=== PATIENT | female | born 1965 | race Caucasian/White ===

== ENCOUNTER → 2017-12-30 13:28 | Outpatient (CLI) | payer OTHER, MEDICAID, SELFPAY ==
--- NOTE | 2017-12-30 13:32 | DI.RAD.S_ITS ---
PROCEDURE: XR FOOT LT MIN 3V INDICATIONS: left foot pain around 4th and 5th metatarsals. TECHNIQUE: 3 views of the foot were acquired. COMPARISON: None. FINDINGS: Bones: No fractures or dislocations. No suspicious bony lesions. Small plantar calcaneal spur. Chronic appearing spur or ossicle projecting adjacent to the medial aspect of the third MTP joint. Soft tissues: No tibiotalar joint effusion. Achilles tendon appears normal. IMPRESSION: No fracture Marginal lucencies involving the fifth metatarsal head. If there is clinical suspicion for inflammatory arthritis, continued serial radiographic surveillance could be performed, versus MRI with and without contrast. Small plantar calcaneal spur Dictated by: Alex Menon M.D. on 12/30/2017 at 14:17 Approved by: Alex Menon M.D. on 12/30/2017 at 14:20
== END ==
PROVIDERS: Visit Provider Physician Assistant
DX: M79.672 Pain in left foot (principal); M77.32 Calcaneal spur, left foot
CPT/HCPCS: 73630

== ENCOUNTER → 2018-03-16 10:16 | Outpatient (CLI) | payer OTHER, SELFPAY | PROVIDERS: PCP Family Medicine; Visit Provider Family Medicine | DX: Z12.31 Encounter for screening mammogram for malignant neoplasm of breast (principal) ==

== ENCOUNTER → 2018-03-21 10:00 | Outpatient (CLI) | payer OTHER, SELFPAY ==
--- NOTE | 2018-03-21 | DI.US.S_ITS ---
ULTRASOUND OF LEFT BREAST: 03/21/2018 CLINICAL: Palpable left breast lump x 6 months. Comparison is made to exams dated: 03/21/2018 mammogram - [facility], 10/06/2016 mammogram, 10/10/2015 mammogram, and 11/03/2011 mammogram - [facility]. Ultrasound of the left breast was performed on the area of interest. Hightower scale images of the real-time examination were reviewed. IMPRESSION: NEGATIVE There is no sonographic evidence of malignancy. There is no mammographic or sonographic abnormality seen in the left breast to correspond with the palpable abnormality, however, clinical followup is recommended. A 1 year screening mammogram is recommended. This exam was interpreted at Station ID: [id number]. Electronically Signed By: Madonna Nelson M.D. lk/:03/21/2018 13:49:13 letter sent: Normal Exam Ultrasound BI-RADS: 1 Negative
--- NOTE | 2018-03-21 10:03 | DI.MG.S_ITS ---
BILATERAL DIGITAL DIAGNOSTIC MAMMOGRAM 3D/2D POST LUMPECTOMY: 03/21/2018 CLINICAL: Left breast lump. Comparison is made to exams dated: 10/06/2016 mammogram, 10/10/2015 mammogram, and 11/03/2011 mammogram - [facility]. There are scattered fibroglandular elements in both breasts. There is a benign post surgical scar in the left breast. No significant masses, calcifications, or other findings are seen in either breast. IMPRESSION: INCOMPLETE: NEEDS ADDITIONAL IMAGING EVALUATION There is no mammographic abnormality seen in the left breast to correspond with the palpable abnormality, however, ultrasound is recommended. This exam was interpreted at Station ID: [id number]. NOTE: For mammograms, a report in lay terms will be sent to the patient. Approximately 15% of breast malignancies will not be visualized mammographically. In the management of a palpable breast mass, a negative mammogram must not discourage biopsy of a clinically suspicious lesion. Electronically Signed By: Madonna ulrcih/tiarra:03/21/2018 10:59:10 letter sent: Additional Imaging Needed ACR BI-RADS Category 0: Incomplete 3340F
== END ==
PROVIDERS: PCP Family Medicine; Visit Provider Family Medicine
DX: R92.8 Other abnormal and inconclusive findings on diagnostic imaging of breast (principal); N63.20 Unspecified lump in the left breast, unspecified quadrant
CPT/HCPCS: 76642; 77066; G0279

== ENCOUNTER → 2018-03-28 09:26 | Outpatient (CLI) | payer OTHER, SELFPAY ==
[2018-03-28 10:10] LABS: Hematocrit 38.8 % (36-46); Hemoglobin 12.8 g/dL (12.0-16.0); Mean Corpuscular HGB Conc 32.9 % (30-36); Mean Corpuscular Hemoglobin 27.1 PG (26-34); Mean Corpuscular Volume 82.2 fL (80-100); Platelet Count 234 X10^3/uL (150-400); Red Blood Cell Count 4.72 X10^6/uL (4.0-5.2); Red Cell Distribution Width 13.2 % (11.6-14.8); White Blood Cell Count 5.7 X10^3/uL (4.5-11.0)
[2018-03-28 10:12] LABS: BUN Creatinine Ratio 18.6 (6-22); Blood Urea Nitrogen 13 mg/dL (7-17); Calcium 9.4 mg/dL (8.4-10.2); Carbon Dioxide 26 mmol/L (22-32); Chloride 105 mmol/L (98-107); Cholesterol 211 mg/dL (140-199); Estimated Glomerular Filt Rate > 60.0 mL/min (>60); Glucose 99 mg/dL (70-100); HDL Cholesterol 45 mg/dL (40-60); HEMOLYSIS < 15 (0-50); LDL Cholesterol Calculated 135 mg/dL (<100); Potassium 4.6 mmol/L (3.4-5.1); Sodium 141 mmol/L (137-145); Triglycerides 156 mg/dL (35-150)
[2018-03-28 10:42] LABS: Microalbumi Creatinin Ratio Ur 4.7 ug/mg CR (<30); Microalbumin Urine Random 0.8 mg/dL (0-1.6)
[2018-03-28 11:42] LABS: Neutrophils Absolute Manual 2964 /uL (3000-5900); Total Cells Counted 100
[2018-03-28 11:43] LABS: RBC Morphology Normal Morphology
== END ==
PROVIDERS: Family Provider Family Medicine; PCP Family Medicine; Visit Provider Family Medicine
DX: E03.9 Hypothyroidism, unspecified (principal); I10 Essential (primary) hypertension
CPT/HCPCS: 36415; 80048; 80061; 82043; 82570; 85025

== ENCOUNTER → 2018-06-13 10:50 | Outpatient (CLI) | payer OTHER, SELFPAY ==
[2018-06-13 16:19] LABS: Rubella Antibody IgG > 350.0 IU/mL (>15)
[2018-06-16 16:12] LABS: Mumps Virus IgG Antibody < 9.00 AU/mL (< 9.00)
== END ==
PROVIDERS: Family Provider Family Medicine; PCP Family Medicine; Visit Provider Family Medicine
DX: Z01.84 Encounter for antibody response examination (principal)
CPT/HCPCS: 36415; 86735; 86762; 86765

== ENCOUNTER → 2018-07-29 15:12 | Outpatient (CLI) | payer OTHER, SELFPAY | PROVIDERS: Family Provider Family Medicine; PCP Family Medicine; Visit Provider Family Medicine | DX: Z13.820 Encounter for screening for osteoporosis (principal); M85.851 Other specified disorders of bone density and structure, right thigh; Z78.0 Asymptomatic menopausal state; E07.9 Disorder of thyroid, unspecified; Z85.3 Personal history of malignant neoplasm of breast; Z82.62 Family history of osteoporosis | CPT/HCPCS: 77080 ==

== ENCOUNTER → 2019-04-08 10:07 | Outpatient (CLI) | payer OTHER, SELFPAY ==
[2019-04-08 11:51] LABS: Thyroid Stimulating Hormone 1.24 uIU/mL (0.47-4.68)
== END ==
PROVIDERS: Family Provider Family Medicine; PCP Family Medicine; Visit Provider Family Medicine
DX: E03.9 Hypothyroidism, unspecified (principal)
CPT/HCPCS: 36415; 84443

== ENCOUNTER → 2019-05-24 07:55 | Outpatient (CLI) | payer OTHER, SELFPAY ==
--- NOTE | 2019-05-24 | DI.MG.S_ITS ---
BILATERAL DIGITAL SCREENING MAMMOGRAM 3D/2D WITH CAD POST LUMPECTOMY: 05/24/2019 CLINICAL: Routine screening. Personal history of left breast cancer. Comparison is made to exams dated: 03/21/2018 mammogram - [facility], 10/06/2016 mammogram, and 10/10/2015 mammogram - [facility]. There are scattered fibroglandular elements in both breasts. Current study was also evaluated with a Computer Aided Detection (CAD) system. There are benign post operative findings in the left breast. No significant masses, calcifications, or other findings are seen in either breast. There has been no significant interval change. IMPRESSION: There is no mammographic evidence of malignancy. A 1 year screening mammogram is recommended. This exam was interpreted at Station ID: [id number]. NOTE: For mammograms, a report in lay terms will be sent to the patient. Approximately 15% of breast malignancies will not be visualized mammographically. In the management of a palpable breast mass, a negative mammogram must not discourage biopsy of a clinically suspicious lesion. Electronically Signed By: Lorenzo mclean/tiarra:05/24/2019 08:13:58 letter sent: Normal Exam ACR BI-RADS Category 2: Benign Finding(s) 3342F
== END ==
PROVIDERS: Family Provider Family Medicine; PCP Family Medicine; Referring Provider Family Medicine; Visit Provider Family Medicine
DX: Z12.31 Encounter for screening mammogram for malignant neoplasm of breast (principal); Z85.3 Personal history of malignant neoplasm of breast
CPT/HCPCS: 77063; 77067

== ENCOUNTER → 2019-12-05 07:03 | Outpatient (CLI) | payer OTHER, SELFPAY ==
[2019-12-05 08:37] LABS: Add Manual Diff / Slide Review NO; Basophils Absolute Auto 0 /uL (0-100); Basophils Percent Auto 0.8 % (0-2); Eosinophils Absolute Auto 400 /uL (0-450); Eosinophils Percent Auto 7.5 % (2-4); Hematocrit 39.1 % (36-46); Hemoglobin 12.7 g/dL (12.0-16.0); Lymphocytes Absolute Auto 1500 /uL (1100-4500); Mean Corpuscular HGB Conc 32.4 % (30-36); Mean Corpuscular Hemoglobin 26.7 PG (26-34); Mean Corpuscular Volume 82.3 fL (80-100); Monocytes Absolute Auto 600 /uL (0-900); Monocytes Percent Auto 9.6 % (3-14); Neutrophils Absolute Auto 3300 /uL (1500-7000); Neutrophils Percent Auto 56.1 % (50-75); Platelet Count 242 X10^3/uL (150-400); Red Blood Cell Count 4.75 X10^6/uL (4.0-5.2); Red Cell Distribution Width 13.3 % (11.6-14.8); White Blood Cell Count 5.9 X10^3/uL (4.5-11.0)
[2019-12-05 09:04] LABS: Alanine Aminotransferase 18 IU/L (<35); Albumin 3.9 g/dL (3.5-5.0); Albumin Globulin Ratio 1.4 (1.0-2.8); Alkaline Phosphatase 52 U/L (38-126); Aspartate Aminotransferase 27 IU/L (14-36); BUN Creatinine Ratio 19.1 (6-22); Bilirubin Total 0.2 mg/dL (0.2-1.3); Blood Urea Nitrogen 13 mg/dL (7-17); Calcium 8.9 mg/dL (8.4-10.2); Carbon Dioxide 30 mmol/L (22-32); Chloride 105 mmol/L (98-107); Cholesterol 183 mg/dL (140-199); Estimated Glomerular Filt Rate > 60.0 mL/min (>60); Globulin 2.7 g/dL (1.7-4.1); Glucose 100 mg/dL (70-100); HDL Cholesterol 43 mg/dL (40-60); HEMOLYSIS < 15 (0-50); LDL Cholesterol Calculated 105 mg/dL (<100); Microalbumin Urine Random 0.7 mg/dL (0-1.6); Potassium 4.4 mmol/L (3.4-5.1); Sodium 141 mmol/L (137-145); Total Protein 6.6 g/dL (6.3-8.2); Triglycerides 175 mg/dL (35-150)
[2019-12-05 09:05] LABS: Creatinine Urine Random 168.3 mg/dL; Microalbumi Creatinin Ratio Ur 4.1 ug/mg CR (<30)
[2019-12-05 09:13] LABS: Vitamin D 25 Hydroxy (D3) 52.7 ng/mL (30.0-100.0)
[2019-12-05 09:31] LABS: Thyroid Stimulating Hormone 1.69 uIU/mL (0.47-4.68)
== END ==
PROVIDERS: Family Provider Family Medicine; PCP Family Medicine; Referring Provider Family Medicine; Visit Provider Family Medicine
DX: E03.9 Hypothyroidism, unspecified (principal); I10 Essential (primary) hypertension; M85.80 Other specified disorders of bone density and structure, unspecified site; Z13.220 Encounter for screening for lipoid disorders
CPT/HCPCS: 36415; 80053; 80061; 82043; 82306; 82570; 84443; 85025

== ENCOUNTER → 2020-06-03 11:14 | Outpatient (CLI) | payer OTHER, SELFPAY ==
--- NOTE | 2020-06-03 | DI.MG.S_ITS ---
BILATERAL DIGITAL SCREENING MAMMOGRAM 3D/2D WITH CAD: 06/03/2020 CLINICAL: Routine screening. Personal history of left breast cancer. Comparison is made to exams dated: 05/24/2019 mammogram, 03/21/2018 mammogram - [facility], and 10/06/2016 mammogram - [facility]. There are scattered fibroglandular elements in both breasts. Current study was also evaluated with a Computer Aided Detection (CAD) system. There are benign post operative findings in the left breast. No significant masses, calcifications, or other findings are seen in either breast. There has been no significant interval change. IMPRESSION: BENIGN There is no mammographic evidence of malignancy. A 1 year screening mammogram is recommended. This exam was interpreted at Station ID: [id number]. NOTE: For mammograms, a report in lay terms will be sent to the patient. Approximately 15% of breast malignancies will not be visualized mammographically. In the management of a palpable breast mass, a negative mammogram must not discourage biopsy of a clinically suspicious lesion. Electronically Signed By: Lillian harding/tiarra:06/03/2020 12:19:08 letter sent: Normal Exam ACR BI-RADS Category 2: Benign Finding(s) 3342F
[2020-06-04 15:08] LABS: Fecal Immunochemical Test Negative (Negative)
== END ==
PROVIDERS: Family Provider Family Medicine; PCP Family Medicine; Referring Provider Family Medicine; Visit Provider Family Medicine
DX: Z12.31 Encounter for screening mammogram for malignant neoplasm of breast (principal); Z85.3 Personal history of malignant neoplasm of breast; Z12.11 Encounter for screening for malignant neoplasm of colon
CPT/HCPCS: 77063; 77067; 82274

== ENCOUNTER → 2020-08-12 09:06 | Outpatient (CLI) | payer OTHER, SELFPAY ==
--- NOTE | 2020-08-12 09:08 | DI.RAD.S_ITS ---
PROCEDURE: XR LUMBAR SPINE 2-3V INDICATIONS: left thigh numbness TECHNIQUE: 3 views of the lumbar spine were acquired. COMPARISON: None. FINDINGS: Bones: 5 [id number] vertebrae are present. There is normal bony alignment. No vertebral body compression fractures. No suspicious bony lesions. Moderate L5-S1 degenerative disc disease. Mild L1-L2, L2-L3 and L3-L4 degenerative disc disease. Mild L3-L4, L4-L5 and L5-S1 facet arthropathy. Soft tissues: Overlying bowel gas pattern is normal. No suspicious soft tissue calcifications. IMPRESSION: 1. Multilevel degenerative disc disease. 2. Multilevel facet arthropathy. 3. No fracture. No acute osseous lesion. If symptoms and/or clinical suspicion for pathology persists, evaluation with MRI should be considered for further assessment. Dictated by: Rachele Garcia MD, PhD on 08/12/2020 at 15:57 Approved by: Rachele Garcia MD, PhD on 08/12/2020 at 16:03
== END ==
PROVIDERS: Family Provider Family Medicine; PCP Family Medicine; Referring Provider Family Medicine; Visit Provider Family Medicine
DX: R20.0 Anesthesia of skin (principal); M51.36 Other intervertebral disc degeneration, lumbar region; M51.37 Other intervertebral disc degeneration, lumbosacral region; M47.816 Spondylosis without myelopathy or radiculopathy, lumbar region; M47.817 Spondylosis without myelopathy or radiculopathy, lumbosacral region
CPT/HCPCS: 72100

== ENCOUNTER → 2020-08-21 15:28 | Outpatient (CLI) | payer OTHER, SELFPAY ==
--- NOTE | 2020-09-25 09:31 | PM.CARDMON.1 ---
Tribal Council Member Report Referral & Results Date Patient Seen: 08/21/20 Requesting provider: Vero Dowd Indication: Palpitations Duration of monitoring (days): 11 Diary information: There were 10 patient triggered events and 5 patient diary entries All 15 these patient events were associated variably with (within 45 seconds) sinus rhythm, PACs, PVCs, and SVT Data: Minimum heart rate identified was 51 beats per minute at 04:44 on 08/30/2020 Maximum sinus heart rate was 134 beats per minute at 14:21 on 08/26/2020 Maximum overall heart rate was 152 beats per minute at 08:05 on 08/28/2020 during a 16 beat run of SVT/atrial tachycardia Less than 1% of identified beats were ventricular or supraventricular ectopic in origin, which would classify them as rare. There were 2 runs of SVT/atrial tachycardia the fastest being the 16 beat run above which was also the longest run. Impression: 11 day shelter monitor showing only rare PACs PVCs and very rare, very brief runs of atrial tachycardia/SVT. No clear correlation between patient events and any particular dysrhythmia. No serious dysrhythmias identified on this study
== END ==
PROVIDERS: Family Provider Family Medicine; PCP Family Medicine; Referring Provider Family Medicine; Visit Provider Family Medicine
DX: R00.2 Palpitations (principal)
CPT/HCPCS: 93246; 93248

== ENCOUNTER → 2020-12-07 08:13 | Outpatient (CLI) | payer OTHER, SELFPAY ==
[2020-12-07 09:17] LABS: Alanine Aminotransferase 14 IU/L (<35); Albumin 4.2 g/dL (3.5-5.0); Albumin Globulin Ratio 1.5 (1.0-2.8); Alkaline Phosphatase 52 U/L (38-126); Aspartate Aminotransferase 28 IU/L (14-36); BUN Creatinine Ratio 23.1 (6-22); Bilirubin Total 0.2 mg/dL (0.2-1.3); Blood Urea Nitrogen 15 mg/dL (7-17); Calcium 9.1 mg/dL (8.4-10.2); Carbon Dioxide 28 mmol/L (22-32); Chloride 107 mmol/L (98-107); Cholesterol 170 mg/dL (140-199); Estimated Glomerular Filt Rate > 60.0 mL/min (>60); Globulin 2.8 g/dL (1.7-4.1); Glucose 99 mg/dL (70-100); HDL Cholesterol 37 mg/dL (40-60); HEMOLYSIS < 15 (0-50); LDL Cholesterol Calculated 104 mg/dL (<100); Potassium 4.6 mmol/L (3.4-5.1); Sodium 139 mmol/L (137-145); Triglycerides 143 mg/dL (35-150)
[2020-12-07 09:42] LABS: Thyroid Stimulating Hormone 1.97 uIU/mL (0.47-4.68)
[2020-12-07 12:50] LABS: Microalbumin Urine Random < 0.6 mg/dL (0-1.6)
== END ==
PROVIDERS: Family Provider Family Medicine; PCP Family Medicine; Referring Provider Family Medicine; Visit Provider Family Medicine
DX: I10 Essential (primary) hypertension (principal); E03.9 Hypothyroidism, unspecified
CPT/HCPCS: 36415; 80053; 80061; 82043; 82570; 84443

== ENCOUNTER → 2021-04-08 16:01 | Outpatient (CLI) | payer OTHER, SELFPAY ==
--- NOTE | 2021-04-08 | DI.MRI.S_ITS ---
PROCEDURE: MR LUMBAR SPINE WO CON INDICATIONS: RADICULOPATHY LUMBAR REGION TECHNIQUE: Noncontrast sagittal T1 spin echo and T2 fast echo, sagittal STIR, axial T1 and T2 fast spin echo through the lumbar spine. In cases with scoliosis, additional coronal T2 fast spin echo may be performed. COMPARISON: None. FINDINGS: Image quality: Excellent. Alignment and Curvature: Normal lumbar vertebral body height and alignment. Bone Marrow: No suspicious focal marrow signal abnormality or bone marrow edema. Spinal Cord: Normal position and appearance of the conus. Regional Soft Tissues: No significant soft tissue abnormality in the prevertebral or paraspinous spaces. T12-L1: No spinal canal or neural foraminal stenosis. L1-L2: Diffuse disc bulge flattens the ventral thecal sac. No mass effect upon the traversing L2 nerve roots. Foraminal components of the disc bulge contribute to mild bilateral neural foraminal narrowing. L2-L3: Diffuse disc bulge flattens the ventral thecal sac. Mild displacement of the descending L3 nerve roots within both subarticular zones. Foraminal components of the disc bulge and facet hypertrophy combine to produce mild bilateral neural foraminal stenosis. There are small facet effusions noted. L3-L4: Diffuse disc bulge flattens and indents the ventral thecal sac without mass effect upon the traversing L4 nerve roots. Foraminal components of the disc bulge and facet hypertrophy combine to produce mild bilateral neural foraminal stenosis. L4-L5: Diffuse disc bulge flattens the ventral thecal sac with mild displacement of the descending L5 nerve roots in both subarticular zones. Mild bilateral neural foraminal narrowing due to foraminal components of the disc bulge and facet hypertrophy. Subchondral cystic change noted in the facets. L5-S1: Diffuse disc bulge with mild displacement of the descending S1 nerve roots. Moderate right greater than left neural foraminal narrowing due to foraminal components of the disc bulge and facet hypertrophy with contribution from neural foraminal collapse due to disc height loss. IMPRESSION: Multilevel multifactorial degenerative changes worst at L5-S1. Dictated by: Zach Hampton M.D. on 04/09/2021 at 11:30 Approved by: Zach Hampton M.D. on 04/09/2021 at 11:33
== END ==
PROVIDERS: Family Provider Family Medicine; PCP Family Medicine; Referring Provider Physical Medicine & Rehabilitation Pain Medicine; Visit Provider Physical Medicine & Rehabilitation Pain Medicine
DX: M54.16 Radiculopathy, lumbar region (principal); M51.36 Other intervertebral disc degeneration, lumbar region; M48.061 Spinal stenosis, lumbar region without neurogenic claudication; M51.37 Other intervertebral disc degeneration, lumbosacral region; M48.07 Spinal stenosis, lumbosacral region
CPT/HCPCS: 72148

== ENCOUNTER → 2021-06-16 17:33 | Outpatient (CLI) | payer OTHER, SELFPAY ==
--- NOTE | 2021-06-16 17:33 | DI.MG.S_ITS ---
BILATERAL DIGITAL SCREENING MAMMOGRAM 3D/2D WITH CAD: 06/16/2021 CLINICAL: Routine screening. Personal history of left breast cancer. Comparison is made to exams dated: 06/03/2020 mammogram, 05/24/2019 mammogram - [facility], 10/06/2016 mammogram - [facility], 03/21/2018 mammogram - [facility], and 10/10/2015 mammogram - [facility]. There are scattered fibroglandular elements in both breasts. Current study was also evaluated with a Computer Aided Detection (CAD) system. There are benign post operative findings in the left breast. No significant masses, calcifications, or other findings are seen in either breast. There has been no significant interval change. IMPRESSION: BENIGN There is no mammographic evidence of malignancy. A 1 year screening mammogram is recommended. This exam was interpreted at Station ID: [id number]. NOTE: For mammograms, a report in lay terms will be sent to the patient. Approximately 15% of breast malignancies will not be visualized mammographically. In the management of a palpable breast mass, a negative mammogram must not discourage biopsy of a clinically suspicious lesion. Electronically Signed By: Modesto pollack/tiarra:06/17/2021 11:52:07 letter sent: Normal Exam ACR BI-RADS Category 2: Benign Finding(s) 3342F
== END ==
PROVIDERS: Family Provider Family Medicine; PCP Family Medicine; Referring Provider Family Medicine; Visit Provider Family Medicine
DX: Z12.31 Encounter for screening mammogram for malignant neoplasm of breast (principal); Z85.3 Personal history of malignant neoplasm of breast
CPT/HCPCS: 77063; 77067

== ENCOUNTER 2021-08-06 16:01 | Emergency (ER) | payer OTHER, SELFPAY ==
[2021-08-06 16:07] VITALS: BP 124/85; PULSE 78; RESP 20; TEMP 36.6; O2SAT 99; BMI 25.7
[2021-08-06 16:10] VITALS: BP 127/66; PULSE 77; O2SAT 96
--- NOTE | 2021-08-06 16:14 | ED.ALLEREA ---
HPI - Allergic Reaction General Chief complaint: Allergic Reaction Stated complaint: Reaction, swelling tongue throat Time Seen by Provider: 08/06/21 16:14 Source: patient Mode of arrival: Ambulatory History of Present Illness HPI narrative: This is a 56-year-old female comes in with complaint of swelling of her lips, tongue and upper airway. Patient states about 11:00 a.m. this morning she felt swelling on 1 side of her tongue followed by swelling of the other side and increasing swelling of the lips and throat. She states she took Benadryl about 3:00 p.m. and has had some improvement. She broke out in hives and was very itchy. She states itching and hives have been improving but she still quite red and splotchy. Patient states no chest pain or shortness of breath, no nausea or vomiting, no diarrhea. Patient does have allergies to Darvocet, erythromycin, hydrocodone but has not had any these recently. No new medications. She states she had a bed E sandwich for any or yesterday she felt sort of tight in her abdomen and then had spasming in her back which resolved she did not have any of the additional symptoms from today at that time. Patient is unaware of any other food allergies or allergies from other exposures. She has not had issues in the past. No new medication changes. She is on BuSpar, levothyroxine, metoprolol and trazodone as daily medications. Related Data Home Medications Medication Instructions Recorded Confirmed Lactobacillus acidophilus 1 100 mg PO DAILY 12/30/17 12/02/20 billion cell capsule ascorbic acid (vitamin C) 500 mg mg PO cap 12/30/17 12/02/20 capsule cholecalciferol (vitamin D3) 50 2,000 unit PO DAILY 12/30/17 12/02/20 mcg (2,000 unit) capsule coenzyme Q10 75 mg capsule (Ultra 75 mg PO DAILY 12/30/17 12/02/20 CoQ10) magnesium 250 mg tablet 250 mg PO DAILY 12/30/17 12/02/20 multivitamin 1 cap PO DAILY 12/01/19 12/02/20 Previous Rx's Medication Instructions Recorded levothyroxine 88 mcg tablet See Rx Instructions .ROUTE 12/23/20 .COMPLEX #90 tab buspirone 5 mg tablet See Rx Instructions .ROUTE 01/16/21 .COMPLEX #180 tab duloxetine 30 mg capsule,delayed See Rx Instructions .ROUTE 05/21/21 release .COMPLEX #270 cap trazodone 50 mg tablet See Rx Instructions .ROUTE 05/30/21 .COMPLEX #90 tab metoprolol succinate 25 mg See Rx Instructions .ROUTE 06/27/21 tablet,extended release 24 hr .COMPLEX #90 tab epinephrine 0.3 mg/0.3 mL 0.3 mg (0.3 mL) IM Q5-15M PRN #2 ea 08/06/21 injection, auto-injector (EpiPen 2-Fredi) famotidine 20 mg tablet (Pepcid) 20 mg PO BID #10 tab 08/06/21 prednisone 50 mg tablet 50 mg PO DAILY #5 tab 08/06/21 Allergies Allergy/AdvReac Type Severity Reaction Status Date / Time acetaminophen Allergy Verified 08/06/21 16:12 [From Darvocet-N] erythromycin base Allergy Verified 08/06/21 16:12 hydrocodone Allergy Verified 08/06/21 16:12 propoxyphene Allergy Verified 08/06/21 16:12 [From [place]-N] Review of Systems Review of Systems ROS Unobtainable: All systems reviewed & are unremarkable except as noted in HPI and below Patient History Medical History Actinic keratosis (~2009) Anxiety (~2005) Breast cancer (~2006) Chronic back pain (~1984) Depression (~1984) Eczema (~1969) Fibromyalgia (~1999) Gastric ulcer (~1984) GERD (gastroesophageal reflux disease) (~1994) History of urinary incontinence (~2017) Hypertension (~2009) Hypothyroidism (~2009) Irregular menstrual cycle Osteoarthritis (~2014) Ovarian cyst Plantar warts (~1974) Seasonal allergies (~1969) Shoulder pain (~2015) Tinnitus (~1999) Surgical History Anesthesia H/O section History of cataract removal with insertion of prosthetic lens (~2016) History of hysterectomy (~2015) History of lumpectomy (~2006) Hx of cholecystectomy (~1998) Family History Father Cancer Mother Heart disease Stroke Rheumatoid arthritis Grandfather No problems noted. Grandmother Rheumatoid arthritis Grandmother Cancer Family/Other Psoriatic arthritis Social History Smoking Status: Former smoker alcohol intake: current Smoking Status: Former smoker alcohol intake frequency: a few times a month Substance Use Type: does not use Exam Narrative Exam Narrative: GEN: well nourished, well appearing female, alert and oriented x 3, patient appears to be in mild distress. HEENT: Atraumatic, pupils are equal round reactive to light, extraocular movements are intact, nares are clear, Throat is clear without any exudates, erythema, tonsillar enlargement or uvular deviation, no swelling of lips, tongue or oropharynx appreciated at this moment, patient has clear speech. HEART: Regular rate and rhythm without murmur, clicks, rubs. Pulses are equal in upper extremities LUNGS:Lungs clear to auscultation, no wheezes, rales, crackles, chest moves symmetrically ABD:bowel sounds normal, soft, non-tender, no guarding, rebound, rigidity, no masses noted, no hepatosplenomegaly MSCL: Non-tender, no muscle atrophy, full range of motion, normal gait NEURO:CN 2-12 intact, sensation normal SKIN: Patient has erythematous blotches, no acute hives currently. Initial Vital Signs Initial Vital Signs: Vital Signs Temperature 97.9 F 08/06/21 16:07 Pulse Rate 78 08/06/21 16:07 Respiratory Rate 20 08/06/21 16:07 Blood Pressure 124/85 08/06/21 16:07 Pulse Oximetry 99 08/06/21 16:07 Course Orders Ordered: Discontinued Medications Famotidine (Famotidine 20 Mg/2 Ml Vial) 20 mg IV NOW ALISON Last Admin: 08/06/21 16:30 Dose: 20 mg Documented by: SKYLER Methylprednisolone (Methylprednisolone 125 Mg/2 Ml Vial) 125 mg IV NOW ONE Stop: 08/06/21 16:21 Last Admin: 08/06/21 16:31 Dose: 125 mg Documented by: SKYLER Reevaluation(s) Reevaluation #1: Patient is continuing to feel improved. Her rash resolved, her swelling of her neck and throat has resolved. Patient was already improving prior and had her Benadryl around 3. At this time I feel appropriate for discharge home and patient feels comfortable. She lives close by. Discussed return precautions. Time: 17:38 Vital Signs Vital signs: Vital Signs - 8 hr 08/06/21 16:07 08/06/21 16:10 08/06/21 16:30 Temperature 97.9 F Pulse Rate 78 77 71 Respiratory Rate 20 16 Blood Pressure 124/85 127/66 133/76 Pulse Oximetry 99 96 98 08/06/21 17:00 08/06/21 17:30 08/06/21 18:00 Temperature Pulse Rate 73 78 87 Respiratory Rate 16 18 30 H Blood Pressure 131/79 138/74 135/66 Pulse Oximetry 98 97 96 MDM - Allergic Reaction MDM Narrative Medical decision making narrative: This is a 56-year-old female comes emergency department with allergic reaction patient has had almost anaphylactic type reaction although it started 11:00 a.m. she took Benadryl 3:00 p.m. has started to have some improvement but still has some discomfort, the swelling of her lips, tongue airway has but she still has significant rash. She was given Solu-Medrol and Pepcid. Patient was not given epinephrine as her oral symptoms had resolved. Discussed with patient on re-evaluation symptoms continue to improve rash is almost completely gone. Plan for prednisone p.o., Benadryl as needed and EpiPen. Patient to follow-up with primary care is there is no clear trigger and they can have discussion about whether allergy testing is appropriate. Patient asked to keep close watch for any potential causes or triggers her medications were reviewed no clear cause from that perspective. Return precautions discussed and patient is aware she needs to keep an EpiPen available with her. Discharge Plan Departure Patient Disposition: Home Clinical Impression: Allergic reaction Instructions: DI for Anaphylaxis Activity Restrictions/Additional Instructions: Follow-up with your physician for recheck. Please keep a journal or track of any potential causes or triggers. Depending on future symptoms they may have you follow-up with an director of enterprise applications. You may take Benadryl 1-2 tablets every 6 hours for any symptoms. Take prednisone daily until gone. Take Pepcid twice daily until gone. Please keep an EpiPen available with at all times in case you have a recurrence. Prescription sent to [facility] in [place]. Please return for recurrent or new swelling of lips, tongue, airway or oropharynx, passing out, persistent vomiting, diarrhea, recurrent rash or other new or concerning symptoms. Prescriptions: New prednisone 50 mg tablet 50 mg PO DAILY Qty: 5 0RF famotidine [Pepcid] 20 mg tablet 20 mg PO BID Qty: 10 0RF epinephrine [EpiPen 2-Fredi] 0.3 mg/0.3 mL auto-injector 0.3 mg IM Q5-15M PRN (Reason: anaphylaxis) Qty: 2 0RF Rx Instructions: do not exceed 3 doses per episode No Action multivitamin Capsule 1 cap PO DAILY 0RF magnesium 250 mg tablet 250 mg PO DAILY 0RF coenzyme Q10 [Ultra CoQ10] 75 mg capsule 75 mg PO DAILY 0RF cholecalciferol (vitamin D3) 2,000 unit capsule 2,000 unit PO DAILY 0RF ascorbic acid (vitamin C) 500 mg capsule PO 0RF Lactobacillus acidophilus 1 billion cell capsule 100 mg PO DAILY 0RF levothyroxine 88 mcg tablet See Rx Instructions .ROUTE .COMPLEX Qty: 90 2RF Dose Instruction: Take 1 tablet (0.088 mg) by mouth daily Rx Instructions: Take 1 tablet (0.088 mg) by mouth daily buspirone 5 mg tablet See Rx Instructions .ROUTE .COMPLEX Qty: 180 3RF Dose Instruction: Take 1 tablet (5 mg) by mouth 2 times daily Rx Instructions: Take 1 tablet (5 mg) by mouth 2 times daily duloxetine 30 mg capsule,delayed release(DR/EC) See Rx Instructions .ROUTE .COMPLEX Qty: 270 1RF Dose Instruction: Take 3 capsules (90 mg) by mouth daily Rx Instructions: Take 3 capsules (90 mg) by mouth daily trazodone 50 mg tablet See Rx Instructions .ROUTE .COMPLEX Qty: 90 1RF Dose Instruction: Take 1 tablet (50 mg) by mouth daily Rx Instructions: Take 1 tablet (50 mg) by mouth daily metoprolol succinate 25 mg tablet extended release 24 hr See Rx Instructions .ROUTE .COMPLEX Qty: 90 1RF Dose Instruction: Take 1 tablet (25 mg) by mouth daily Rx Instructions: Take 1 tablet (25 mg) by mouth daily Referrals: Vero Dowd MD [Primary Care Provider] -
[2021-08-06 16:30] VITALS: BP 133/76; PULSE 71; RESP 16; O2SAT 98
[2021-08-06] MEDS: FAMOTIDINE 20 MG/2 ML VIAL IV (16:30)
[2021-08-06] MEDS: methylPREDNISolone 125 MG/2 ML VIAL IV (16:31)
[2021-08-06 17:00] VITALS: BP 131/79; PULSE 73; RESP 16; O2SAT 98
[2021-08-06 17:30] VITALS: BP 138/74; PULSE 78; RESP 18; O2SAT 97
[2021-08-06 18:00] VITALS: BP 135/66; PULSE 87; RESP 30; O2SAT 96
== END 2021-08-06 18:17 | disposition home or self-care (01) ==
PROVIDERS: Emergency Provider Emergency Medicine; Family Provider Family Medicine; PCP Family Medicine
DX: T78.40XA Allergy, unspecified, initial encounter (principal)
CPT/HCPCS: 36415; 96374; 96375; 99284; J2930

== ENCOUNTER 2021-08-08 07:17 | Emergency (ER) | payer OTHER, SELFPAY ==
[2021-08-08 07:51] VITALS: BP 143/76; PULSE 75; RESP 18; TEMP 36; O2SAT 100; BMI 25.7
--- NOTE | 2021-08-08 08:07 | ED.ALLEREA ---
HPI - Allergic Reaction General Chief complaint: Allergic Reaction Stated complaint: RASH ALL OVER Time Seen by Provider: 08/08/21 08:00 Source: patient Mode of arrival: Family Vehicle History of Present Illness HPI narrative: Patient is a 56-year-old female who was seen evaluated here 2 days ago for allergic reaction. She is unclear of the source. She had some tongue swelling lip swelling and sore throat on some splotchy red hives. She received Solu-Medrol and Pepcid. Which seem to improve all of her symptoms. She was sent home on prednisone 50 mg for 5 days Pepcid she has been taking Benadryl and has an EpiPen. She says this morning woke up and had rash all across her stomach she was worried that it was shingles but she took Benadryl and it went away. She has also been itching all night. She has a new spot on her left lateral ankle that she is worried about. She has no tongue swelling lip swelling or throat pain none of her other symptoms. She is extremely worried. Related Data Home Medications Medication Instructions Recorded Confirmed Lactobacillus acidophilus 1 100 mg PO DAILY 12/30/17 12/02/20 billion cell capsule ascorbic acid (vitamin C) 500 mg mg PO cap 12/30/17 12/02/20 capsule cholecalciferol (vitamin D3) 50 2,000 unit PO DAILY 12/30/17 12/02/20 mcg (2,000 unit) capsule coenzyme Q10 75 mg capsule (Ultra 75 mg PO DAILY 12/30/17 12/02/20 CoQ10) magnesium 250 mg tablet 250 mg PO DAILY 12/30/17 12/02/20 multivitamin 1 cap PO DAILY 12/01/19 12/02/20 Previous Rx's Medication Instructions Recorded levothyroxine 88 mcg tablet See Rx Instructions .ROUTE 12/23/20 .COMPLEX #90 tab buspirone 5 mg tablet See Rx Instructions .ROUTE 01/16/21 .COMPLEX #180 tab duloxetine 30 mg capsule,delayed See Rx Instructions .ROUTE 05/21/21 release .COMPLEX #270 cap trazodone 50 mg tablet See Rx Instructions .ROUTE 05/30/21 .COMPLEX #90 tab metoprolol succinate 25 mg See Rx Instructions .ROUTE 06/27/21 tablet,extended release 24 hr .COMPLEX #90 tab epinephrine 0.3 mg/0.3 mL 0.3 mg (0.3 mL) IM Q5-15M PRN #2 ea 08/06/21 injection, auto-injector (EpiPen 2-Fredi) famotidine 20 mg tablet (Pepcid) 20 mg PO BID #10 tab 08/06/21 prednisone 50 mg tablet 50 mg PO DAILY #5 tab 08/06/21 Allergies Allergy/AdvReac Type Severity Reaction Status Date / Time acetaminophen All[facility]08[facility]21 07[facility] eryth[facility] base Allergy Verified 08/08/21 07:55 hydrocodone Allergy Verified 08/08/21 07:55 propoxyphene Allergy Verified 08/08/21 07:55 [facility] Review of Systems Review of Systems Narrative: GENERAL: Denies chills, fatigue, malaise, fever, sweats, travel HEENT: See HPI RESPIRATORY: Denies dyspnea, cough, wheezing, hemoptysis, sputum. CARDIOVASCULAR: Denies chest pain, palpitations, orthopnea, edema GASTROINTESTINAL: Denies nausea, vomiting, abdominal pain, diarrhea, constipation, melena. : Denies dysuria, frequency, incontinence, hematuria, urinary retention, flank pain. MUSCULOSKELETAL: Denies weakness, joint pain, or bony pain SKIN: See HPI NEUROLOGIC: Denies weakness, dizziness, headache, numbness, change in speech, confusion PSYCHIATRIC: No concerning psychosocial issues. 12 point review of systems is negative except for those stated above and HPI Patient History Medical History Actinic keratosis (~2009) Anxiety (~2005) Breast cancer (~2006) Chronic back pain (~1984) Depression (~1984) Eczema (~1969) Fibromyalgia (~1999) Gastric ulcer (~1984) GERD (gastroesophageal reflux disease) (~1994) History of urinary incontinence (~2017) Hypertension (~2009) Hypothyroidism (~2009) Irregular menstrual cycle Osteoarthritis (~2014) Ovarian cyst Plantar warts (~1974) Seasonal allergies (~1969) Shoulder pain (~2015) Tinnitus (~1999) Surgical History Anesthesia H/O section History of cataract removal with insertion of prosthetic lens (~2016) History of hysterectomy (~2015) History of lumpectomy (~2006) Hx of cholecystectomy (~1998) Family History Father Cancer Mother Heart disease Stroke Rheumatoid arthritis Grandfather No problems noted. Grandmother Rheumatoid arthritis Grandmother Cancer Family/Other Psoriatic arthritis Social History Smoking Status: Former smoker alcohol intake: current Smoking Status: Former smoker alcohol intake frequency: a few times a month Substance Use Type: does not use Exam Initial Vital Signs Initial Vital Signs: Vital Signs Temperature 96.8 F L 08/08/21 07:51 Pulse Rate 75 08/08/21 07:51 Respiratory Rate 18 08/08/21 07:51 Blood Pressure 143/76 H 08/08/21 07:51 Pulse Oximetry 100 08/08/21 07:51 GENERAL: Well-appearing, well-nourished and in no acute distress. HEENT: Head atraumatic,EOMI, pupils reactive, face symmetric, moist mucous membranes PHARYNX: No tongue swelling lip swelling or difficulty breathing CARDIOVASCULAR: Peripheral pulses intact no cyanosis RESPIRATORY: No stridor no respiratory distress speaks in full sentences without difficulty ABDOMEN: Soft, nontender. Normoactive bowel sounds all 4 quadrants. No guarding or rebound. EXTREMITIES: Normal range of motion, no clubbing or edema. Neurovascularly intact NEUROLOGICAL: Alert and oriented x4 SKIN: Warm, dry, no laceration, no petechiae, no rashes or lesions. No hives. Left lateral ankle appears to be spider veins Course Vital Signs Vital signs: Vital Signs - 8 hr 08/08/21 07:51 Temperature 96.8 F L Pulse Rate 75 Respiratory Rate 18 Blood Pressure 143/76 H Pulse Oximetry 100 MDM - Allergic Reaction MDM Narrative Medical decision making narrative: The patient was seen evaluated here 2 days ago for allergic reaction. She continues to have some symptoms. Had rash this morning which improved with Benadryl. Certainly not consistent with shingles. Most consistent with allergic reaction and hives. The area on her ankle looks more like a spider vein rather than a hive. Even though she says that it is brand new. It does not appear petechial in nature. She has no airway compromise this time. At this time I recommend outpatient allergy testing and for her to finish all of her medications as previously prescribed. Discharge Plan Departure Patient Disposition: Home Clinical Impression: Allergic reaction Instructions: Anaphylaxis Activity Restrictions/Additional Instructions: *You have been diagnosed with allergic reaction *What to do: At this time I do recommend that he get allergy testing. However please keep taking the medication as previously prescribed. If you need to use your EpiPen please go to the nearest emergency department after use it. *Continue to take medications as directed You may add [id number] Claritin or Marci take as directed. He make take this with all of your other medications. *Follow up with your primary care provider in 2-3 days or call [phone] *Return to ER if you should have increasing rash, shortness of breath, any new, worsening or concerning symptoms Prescriptions: No Action multivitamin Capsule 1 cap PO DAILY 0RF magnesium 250 mg tablet 250 mg PO DAILY 0RF coenzyme Q10 [Ultra CoQ10] 75 mg capsule 75 mg PO DAILY 0RF cholecalciferol (vitamin D3) 2,000 unit capsule 2,000 unit PO DAILY 0RF ascorbic acid (vitamin C) 500 mg capsule PO 0RF Lactobacillus acidophilus 1 billion cell capsule 100 mg PO DAILY 0RF levothyroxine 88 mcg tablet See Rx Instructions .ROUTE .COMPLEX Qty: 90 2RF Dose Instruction: Take 1 tablet (0.088 mg) by mouth daily Rx Instructions: Take 1 tablet (0.088 mg) by mouth daily buspirone 5 mg tablet See Rx Instructions .ROUTE .COMPLEX Qty: 180 3RF Dose Instruction: Take 1 tablet (5 mg) by mouth 2 times daily Rx Instructions: Take 1 tablet (5 mg) by mouth 2 times daily duloxetine 30 mg capsule,delayed release(DR/EC) See Rx Instructions .ROUTE .COMPLEX Qty: 270 1RF Dose Instruction: Take 3 capsules (90 mg) by mouth daily Rx Instructions: Take 3 capsules (90 mg) by mouth daily trazodone 50 mg tablet See Rx Instructions .ROUTE .COMPLEX Qty: 90 1RF Dose Instruction: Take 1 tablet (50 mg) by mouth daily Rx Instructions: Take 1 tablet (50 mg) by mouth daily metoprolol succinate 25 mg tablet extended release 24 hr See Rx Instructions .ROUTE .COMPLEX Qty: 90 1RF Dose Instruction: Take 1 tablet (25 mg) by mouth daily Rx Instructions: Take 1 tablet (25 mg) by mouth daily prednisone 50 mg tablet 50 mg PO DAILY Qty: 5 0RF famotidine [Pepcid] 20 mg tablet 20 mg PO BID Qty: 10 0RF epinephrine [EpiPen 2-Fredi] 0.3 mg/0.3 mL auto-injector 0.3 mg IM Q5-15M PRN (Reason: anaphylaxis) Qty: 2 0RF Rx Instructions: do not exceed 3 doses per episode Referrals: Vero Dowd MD [Primary Care Provider] -
== END 2021-08-08 08:35 | disposition home or self-care (01) ==
PROVIDERS: Emergency Provider Emergency Medicine; Family Provider Family Medicine; PCP Family Medicine
DX: T78.40XA Allergy, unspecified, initial encounter (principal); R21 Rash and other nonspecific skin eruption
CPT/HCPCS: 99281

== ENCOUNTER → 2021-11-15 08:14 | Outpatient (CLI) | payer OTHER, SELFPAY ==
[2021-11-15 09:28] LABS: Add Manual Diff / Slide Review NO; Basophils Absolute Auto 100 /uL (0-100); Basophils Percent Auto 1.1 % (0-2); Eosinophils Absolute Auto 400 /uL (0-450); Eosinophils Percent Auto 7.3 % (2-4); Hemoglobin 12.8 g/dL (12.0-16.0); Lymphocytes Absolute Auto 1200 /uL (1100-4500); Lymphocytes Percent Auto 25.3 % (25-40); Mean Corpuscular HGB Conc 33.8 % (30-36); Mean Corpuscular Hemoglobin 27.5 PG (26-34); Mean Corpuscular Volume 81.5 fL (80-100); Monocytes Absolute Auto 400 /uL (0-900); Monocytes Percent Auto 9.2 % (3-14); Neutrophils Absolute Auto 2800 /uL (1500-7000); Neutrophils Percent Auto 57.1 % (50-75); Platelet Count 237 X10^3/uL (150-400); Red Blood Cell Count 4.66 X10^6/uL (4.0-5.2); Red Cell Distribution Width 12.8 % (11.6-14.8); White Blood Cell Count 4.9 X10^3/uL (4.5-11.0)
[2021-11-15 09:43] LABS: Creatinine Urine Random 146.3 mg/dL
[2021-11-15 09:45] LABS: Alanine Aminotransferase 16 IU/L (<35); Albumin 4.1 g/dL (3.5-5.0); Albumin Globulin Ratio 1.5 (1.0-2.8); Alkaline Phosphatase 46 U/L (38-126); Aspartate Aminotransferase 23 IU/L (14-36); BUN Creatinine Ratio 16.1 (6-22); Bilirubin Total 0.3 mg/dL (0.2-1.3); Blood Urea Nitrogen 10 mg/dL (7-17); Carbon Dioxide 24 mmol/L (22-32); Chloride 105 mmol/L (98-107); Cholesterol 192 mg/dL (140-199); Estimated Glomerular Filt Rate > 60 mL/min (>60); Globulin 2.7 g/dL (1.7-4.1); Glucose 109 mg/dL (70-100); HDL Cholesterol 43 mg/dL (40-60); HEMOLYSIS < 15 (0-50); LDL Cholesterol Calculated 115 mg/dL (<100); Potassium 4.4 mmol/L (3.4-5.1); Sodium 137 mmol/L (137-145); Total Protein 6.8 g/dL (6.3-8.2); Triglycerides 171 mg/dL (35-150)
[2021-11-15 09:46] LABS: Microalbumi Creatinin Ratio Ur 5.4 ug/mg CR (<30); Microalbumin Urine Random 0.8 mg/dL (0-1.6)
[2021-11-15 09:58] LABS: Free T3, Triiodothyronine Free 3.26 pg/mL (2.77-5.27)
[2021-11-15 10:33] LABS: Vitamin B12 993 pg/mL (239-931)
[2021-11-16 10:38] LABS: Thyroid Peroxidase Antibodies <8 IU/mL (0-34)
== END ==
PROVIDERS: Naturopath; Family Provider Family Medicine; PCP Family Medicine; Referring Provider Family Medicine; Visit Provider Family Medicine
DX: Z00.00 Encounter for general adult medical examination without abnormal findings (principal); E03.9 Hypothyroidism, unspecified; D51.3 Other dietary vitamin B12 deficiency anemia; I10 Essential (primary) hypertension; M85.80 Other specified disorders of bone density and structure, unspecified site; C50.919 Malignant neoplasm of unspecified site of unspecified female breast
CPT/HCPCS: 36415; 80053; 80061; 82043; 82570; 82607; 84443; 84481; 85025; 86376

== ENCOUNTER → 2021-12-31 13:49 | Outpatient (CLI) | payer OTHER, SELFPAY ==
--- NOTE | 2021-12-31 14:01 | DIET.CONS ---
Dietary Consultation Note Assessment: 56y F attending [address] visit for help with weight management and plant-based diet in post-menopausal state. Ht: 5'5 Wt: 162# BMI: 27.0 Pt with hx yoyo dieting and family that had strict food rules around eating at certain times and eating everything on one's plate. Pt went plant based a few years ago, lost 12# but has since started gaining some weight back. Usual Day: wakes 530am likes to lay in bed listening to music and on phone takes thyroid meds with water gets ready for work B(7am): 16oz Smoothie containing [employer] 2 cups oliver, strawberry, pineapple, peach c 1c unsweetened almond milk, handful spinach, banana 1-2c coffee, black goes to work- on feet all day starting to take midmorning snack- 1/2 c hummus c veggies lunch is whenever it can happen because she is busy between 12-2 L: salad c tomato, black beans, garbanzo beans, green onion, alfalfa sprouts, sliced olives or avocado- cilantro circle hungry by the time gets home from work dinner (5-530pm): take out- Vagabond veggie burger with salad, Agave veggie quesadilla, edamame in a stir gupta or tamarind cauliflower and spring rolls 8pm: mini pack popcorn, protein ball, fruit popsicle, cashews couple glasses wine weekly good water drinker was using meal delivery services which helped her to meal prep Physical Activity: walk every few days RD Impression: Pt with overall healthy habits, however pt not actively exercising- cardio nor weight bearing and pt with ineffective meal timing so she orders take out most evening. Nutrition Diagnosis: overweight r/t undesirable meal choices and timing and physical inactivity aeb BMI 27, pt walks every few days, pt too hungry after work to cook so eats high kcal take out. Interventions: 1. Introduced pt to hunger scale. Pt will eat at a 3 and stop at 7, notice when eating when a 5 and choose different activity. 2. Educated pt on meal planning using meal planning template and [employer] website. Pt will meal plan 3 dinners weekly using template and website. Pt prefers paper recipes so will print off recipes then shop for items virtually. 3. Educated pt on role of metabolism and weight in post-menopausal state. Importance of weight bearing exercise to support LBM. Pt will pre-load with 20g protein prior to weight bearing exercise twice per week on her days off. 4. Reformulated pts morning smoothie for better balance by reducing fruit. EER: <1800kcals daily Monitoring/Evaluations: f/u in 2w to problem solve and set goals. Electronically Signed by: Aislinn Meraz 12/31/21 14:01 Clinical Dietitian [address] [address]
[2021-12-31 15:01] VITALS: BMI 26.9
== END ==
PROVIDERS: Family Provider Family Medicine; PCP Family Medicine; Referring Provider Family Medicine; Visit Provider Family Medicine
DX: E66.3 Overweight (principal); Z68.27 Body mass index [BMI] 27.0-27.9, adult; Z71.3 Dietary counseling and surveillance; Z78.0 Asymptomatic menopausal state
CPT/HCPCS: 97802

== ENCOUNTER → 2022-04-21 15:04 | Outpatient (CLI) | payer OTHER, SELFPAY ==
[2022-04-21 16:09] LABS: Add Manual Diff / Slide Review NO; Basophils Absolute Auto 0 /uL (0-100); Basophils Percent Auto 0.5 % (0-2); Eosinophils Absolute Auto 400 /uL (0-450); Eosinophils Percent Auto 5.9 % (2-4); Hematocrit 37.7 % (36-46); Hemoglobin 12.6 g/dL (12.0-16.0); Lymphocytes Absolute Auto 2000 /uL (1100-4500); Lymphocytes Percent Auto 28.3 % (25-40); Mean Corpuscular HGB Conc 33.3 % (30-36); Mean Corpuscular Hemoglobin 27.1 PG (26-34); Mean Corpuscular Volume 81.2 fL (80-100); Monocytes Absolute Auto 600 /uL (0-900); Monocytes Percent Auto 9.2 % (3-14); Neutrophils Absolute Auto 4000 /uL (1500-7000); Neutrophils Percent Auto 56.1 % (50-75); Platelet Count 245 X10^3/uL (150-400); Red Blood Cell Count 4.64 X10^6/uL (4.0-5.2); Red Cell Distribution Width 13.3 % (11.6-14.8); White Blood Cell Count 7.1 X10^3/uL (4.5-11.0)
[2022-04-21 17:25] LABS: Alanine Aminotransferase 17 IU/L (<35); Albumin 4.3 g/dL (3.5-5.0); Albumin Globulin Ratio 1.7 (1.0-2.8); Alkaline Phosphatase 54 U/L (38-126); Aspartate Aminotransferase 25 IU/L (14-36); BUN Creatinine Ratio 15.6 (6-22); Bilirubin Total 0.2 mg/dL (0.2-1.3); Blood Urea Nitrogen 10 mg/dL (7-17); Calcium 9.1 mg/dL (8.4-10.2); Carbon Dioxide 25 mmol/L (22-32); Chloride 100 mmol/L (98-107); Estimated Glomerular Filt Rate > 60 mL/min (>60); Globulin 2.6 g/dL (1.7-4.1); Glucose 99 mg/dL (70-100); HEMOLYSIS < 15 (0-50); Sodium 137 mmol/L (137-145); Total Protein 6.9 g/dL (6.3-8.2)
[2022-04-21 17:57] LABS: TSH w/ Reflex to FT4 2.53 uIU/mL (0.47-4.68)
== END ==
PROVIDERS: Family Provider Family Medicine; PCP Family Medicine; Referring Provider Physician Assistant; Visit Provider Physician Assistant
DX: E03.9 Hypothyroidism, unspecified (principal); R19.7 Diarrhea, unspecified
CPT/HCPCS: 36415; 80053; 84443; 85025

== ENCOUNTER → 2022-04-23 08:47 | Outpatient (CLI) | payer OTHER, SELFPAY ==
[2022-04-23 10:36] LABS: Clostridium Difficile Tox PCR Negative for C. diff (Negative)
== END ==
PROVIDERS: Family Provider Family Medicine; PCP Family Medicine; Referring Provider Physician Assistant; Visit Provider Physician Assistant
DX: E03.9 Hypothyroidism, unspecified (principal); R19.7 Diarrhea, unspecified
CPT/HCPCS: 87045; 87493; 87899

== ENCOUNTER → 2022-05-11 09:54 | Outpatient (CLI) | payer OTHER, SELFPAY ==
[2022-05-12 07:51] LABS: Fecal Immunochemical Test Negative (Negative)
== END ==
PROVIDERS: Family Provider Family Medicine; PCP Family Medicine; Referring Provider Family Medicine; Visit Provider Family Medicine
DX: Z12.11 Encounter for screening for malignant neoplasm of colon (principal)
CPT/HCPCS: 82274

== ENCOUNTER → 2022-05-25 08:38 | Outpatient (CLI) | payer OTHER, SELFPAY ==
--- NOTE | 2022-05-25 08:38 | DI.US.S_ITS ---
PROCEDURE: US ABDOMEN COMPLETE INDICATIONS: Diarrhea > 2 months (Neg C. diff culture) TECHNIQUE: Real-time scanning was performed of the abdominal and retroperitoneal organs, with image documentation. COMPARISON: [facility], MR, MR LUMBAR SPINE WO CON, 04/08/2021, 16:33. FINDINGS: Liver: Diffusely increased hepatic parenchymal echogenicity. Possible 1.2 x 1.2 x 1.0 cm hypoechoic liver lesion is indeterminate. Gallbladder: Cholecystectomy. Biliary ducts: No intrahepatic or extrahepatic biliary ductal dilatation. Pancreas: Visualized portions of the pancreas are sonographically normal. Spleen: Spleen is normal in size and homogeneous in echotexture. Kidneys: Normal size and appearance of the kidneys with exception of a 4 mm nonobstructing calculus in the right renal lower pole. Aorta: Visualized aorta is normal in caliber at less than 3 cm. Iliacs: Proximal common iliac arteries are normal in caliber at less than 2.5 cm. IVC: Intrahepatic inferior vena cava is patent. Miscellaneous: No free abdominal fluid. IMPRESSION: Diffusely increased hepatic parenchymal echogenicity, statistically most likely to represent steatosis. Approximately 1.2 cm hypoechoic possible right hepatic lobe mass. This most likely represents a cyst however this is not definitive. Hepatic protocol CT or MRI is recommended for further evaluation. Nonobstructing right lower pole calculus measuring 4 mm. Dictated by: Zach Hampton M.D. on 05/25/2022 at 13:13 Approved by: Zach Hampton M.D. on 05/25/2022 at 13:16
== END ==
PROVIDERS: Family Provider Family Medicine; PCP Family Medicine; Referring Provider Physician Assistant; Visit Provider Physician Assistant
DX: R19.7 Diarrhea, unspecified (principal); N20.0 Calculus of kidney
CPT/HCPCS: 76700

== ENCOUNTER → 2022-08-04 | Outpatient (CLI) | payer OTHER, SELFPAY ==
--- NOTE | 2022-08-04 15:41 | DI.DEXA.S_ITS ---
Bone Density Report Name: YOVANI GONZALEZ Age: 57 Sex: Female Ethnicity: White Date of : 1965 Indication: postmenopausal; screening for osteoporosis; parental hip fracture; Referring Provider: LUCIANO SCOTT Study: Bone densitometry was performed. Exam Date: August 04, 2022 Accession number: [id number] Bone Density: Region BMD T-score Z-score Classification AP Spine(L1, L2, L3) 0.947 -0.6 0.7 Normal Femoral Neck (Left) 0.663 -1.7 -0.4 Osteopenia Total Hip (Left) 0.838 -0.9 0.0 Normal Femoral Neck (Right) 0.648 -1.8 -0.6 Osteopenia Total Hip (Right) 0.863 -0.6 0.3 Normal Total Hip Mean 0.850 -0.8 0.2 Normal World Health Organization criteria for BMD impression classify patients as: Normal (T-score at or above -1.0), Osteopenia (T-score between -1.0 and -2.5), or Osteoporosis (T-score at or below -2.5). 10-year Fracture Risk(1): Major Osteoporotic Fracture 17% Hip Fracture 1.0% Reported Risk Factors: [place] (), Neck BMD=0.648, BMI=25.6, parental fracture (1) FRAX(R) Version 3.08. Fracture probability calculated for an untreated patient. Fracture probability may be lower if the patient has received treatment. Previous Exams: -- Region Exam Age BMD T-score BMD Change BMD Change Date g/cm2 vs Baseline vs Previous -- AP Spine (L1-L3) 08/04/2022 57 0.947 -0.6 0.018 (1.9%)# 0.018 (1.9%)# 07/29/2018 53 0.929 -0.8 Total Hip(Left) 08/04/2022 57 0.838 -0.9 -0.037 (-4.2%)# -0.037 (-4.2%)# 07/29/2018 53 0.875 -0.6 Total Hip(Right) 08/04/2022 57 0.863 -0.6 0.030 (3.6%)# 0.030 (3.6%)# 07/29/2018 53 0.832 -0.9 -- *Denotes significance at 95% confidence level, LSC for AP Spine = 0.022 g/cm2, LSC for Total Hip = 0.027 g/cm2 # Denotes dissimilar scan types or analysis methods Impression: The patient has low bone mass, based on the Right Femoral Neck T-score. The patient has an estimated ten-year risk of hip fracture of 1% and an estimated ten-year risk of major fracture of 17%, based on the WHO FRAX algorithm. The patient has risk factors, including: parental hip fracture. No significant bone loss was observed. Discussion: BONE DENSITY IS LOW AT ONE OR MORE SKELETAL SITES. This patient's lowest T-score is low at one or more skeletal sites. It meets the World Health Organization's (WHO) criteria for ?low bone mass? (T-score between -1.0 and -2.5). The patient's 10-year risk of fracture as calculated by FRAX is less than the threshold where pharmacological therapy is recommended by the National Osteoporosis Foundation (NOF). However, all treatment decisions require clinical judgment and consideration of individual patient factors, including patient preferences, comorbidities, previous drug use, risk factors not captured in the FRAX model (e.g., frailty, falls, vitamin D deficiency, increased bone turnover, interval significant decline in bone density) and possible under or overestimation of fracture risk by FRAX. The patient should follow a healthful lifestyle (good nutrition with adequate calcium and vitamin D, and appropriate weight-bearing exercise). Follow-Up: Consider repeating this study in 2 to 3 years to reassess this patient's status, or sooner if there is some new clinical indication. Reported by: TERRIE MESA M.D. on 08/04/2022 3:54:00 PM.
== END ==
PROVIDERS: Family Provider Family Medicine; PCP Family Medicine; Referring Provider Physician Assistant; Visit Provider Physician Assistant
DX: M85.851 Other specified disorders of bone density and structure, right thigh (principal); Z78.0 Asymptomatic menopausal state; Z13.820 Encounter for screening for osteoporosis; Z82.62 Family history of osteoporosis
CPT/HCPCS: 77080

== ENCOUNTER → 2022-09-21 15:34 | Outpatient (CLI) | payer OTHER, SELFPAY ==
--- NOTE | 2022-09-21 15:35 | DI.MG.S_ITS ---
BILATERAL DIGITAL SCREENING MAMMOGRAM 3D/2D WITH CAD POST LUMPECTOMY: 09/21/2022 CLINICAL: Routine screening. Personal history of left breast cancer. Comparison is made to exams dated: 06/16/2021 mammogram, 06/03/2020 mammogram, and 05/24/2019 mammogram - [facility]. There are scattered areas of fibroglandular density in both breasts (category b / 25%-50% glandular tissue). Current study was also evaluated with a Computer Aided Detection (CAD) system. There is a focal asymmetry in the right breast at 3 o'clock middle depth. No other significant masses, calcifications, or other findings are seen in either breast. IMPRESSION: INCOMPLETE: NEEDS ADDITIONAL IMAGING EVALUATION The focal asymmetry in the right breast is indeterminate. Additional views with possible ultrasound are recommended. This exam was interpreted at Station ID: [id number]. NOTE: For mammograms, a report in lay terms will be sent to the patient. Approximately 15% of breast malignancies will not be visualized mammographically. In the management of a palpable breast mass, a negative mammogram must not discourage biopsy of a clinically suspicious lesion. Electronically Signed By: Champ Gallagher M.D. lc/:09/23/2022 08:14:28 letter sent: Additional Imaging Needed ACR BI-RADS Category 0: Incomplete 3340F
[2022-09-21 17:46] LABS: Progesterone, Total 0.56 ng/mL
[2022-09-21 17:57] LABS: TSH w/ Reflex to FT4 2.62 uIU/mL (0.47-4.68)
[2022-09-24 00:37] LABS: Estradiol <5.0 pg/mL (.); Estriol,Serum <0.1 ng/mL (.); Estrone,Serum 10 pg/mL (.)
== END ==
PROVIDERS: Physician Assistant; Family Provider Family Medicine; PCP Family Medicine; Referring Provider Family Medicine; Visit Provider Family Medicine
DX: Z12.31 Encounter for screening mammogram for malignant neoplasm of breast (principal); Z85.3 Personal history of malignant neoplasm of breast
CPT/HCPCS: 36415; 77063; 77067; 82670; 82677; 82679; 84144; 84443

== ENCOUNTER → 2022-11-02 13:21 | Outpatient (CLI) | payer OTHER, SELFPAY ==
--- NOTE | 2022-11-02 13:22 | DI.MG.S_ITS ---
UNILATERAL RIGHT DIGITAL DIAGNOSTIC MAMMOGRAM 3D/2D WITH ADDITIONAL VIEWS: 11/02/2022 CLINICAL: Additional evaluation requested from prior study. Comparison is made to exams dated: 09/21/2022 mammogram, 06/16/2021 mammogram, and 06/03/2020 mammogram - [facility]. There are scattered areas of fibroglandular density in the right breast (category b / 25%-50% glandular tissue). The focal asymmetry in the right breast at 1 o'clock middle depth is less conspicuous on compression views. No other significant masses or calcifications are seen in the breast. IMPRESSION: BENIGN The focal asymmetry in the right breast is consistent with a post-surgical scar and is benign. There is no mammographic evidence of malignancy. Return to annual mammogram screening schedule is recommended. This exam was interpreted at Station ID: [id number]. NOTE: For mammograms, a report in lay terms will be sent to the patient. Approximately 15% of breast malignancies will not be visualized mammographically. In the management of a palpable breast mass, a negative mammogram must not discourage biopsy of a clinically suspicious lesion. Electronically Signed By: Madonna Nelson M.D. lk/:11/02/2022 14:22:33 letter sent: Normal Exam ACR BI-RADS Category 2: Benign Finding(s) 3342F
== END ==
PROVIDERS: Family Provider Family Medicine; PCP Family Medicine; Referring Provider Family Medicine; Visit Provider Family Medicine
DX: R92.8 Other abnormal and inconclusive findings on diagnostic imaging of breast (principal)
CPT/HCPCS: 77065; G0279

== ENCOUNTER → 2023-01-11 09:47 | Outpatient (CLI) | payer OTHER, SELFPAY ==
--- NOTE | 2023-01-11 09:48 | DI.RAD.S_ITS ---
PROCEDURE: FL BARIUM SWALLOW W SPEECH INDICATIONS: difficulty swallowing COMPARISON: None. TECHNIQUE: Examination was conducted in conjunction with speech pathology per standard protocol. In the lateral projection, filming was performed of the patient swallowing. AP projection filming may also be performed with patient swallowing. COMPARISON: FINDINGS: Function: The oral preparatory phase appears normal, with proper containment. The subsequent oral propulsive phase, pharyngeal phase, and esophageal phase of swallowing also appear normal with all proffered substances. No laryngotracheal penetration or aspiration. No pathologic vallecular pooling. A barium pill passed without difficulty. Morphology: No cricopharyngeal bar is identified. No cervical esophageal webs. No Zenker's diverticulum. No strictures. IMPRESSION: No evidence of aspiration or penetration. Normal esophagram. Please see speech pathology report for complete findings. Dictated by: Philip Bender M.D. on 01/11/2023 at 11:48 Approved by: Philip Bender M.D. on 01/11/2023 at 11:49
--- NOTE | 2023-01-11 13:16 | ST.SWALLOW ---
Visit Care Team Role Provider Type Vero Dowd MD Attending Provider Physician Family Provider Primary Care Provider Referring Provider Specialty: Family Practice Address: [address] [place] [address], [facility] [place], [address] Email: [email or web address] Modified Barium Swallow Study CLEANER SIGNS Modified Barium Swallow Study Start: 01/11/23 09:49 Freq: Status: Active Protocol: Document 01/11/23 11:19 LNK (Rec: 01/11/23 13:16 LNK [id number]) Modified Barium Swallow Study Total Time Visit Start Time 10:00 Visit Stop Time 10:40 Total Visit Minutes 40 Referral Referring Physician Bisi Dowd MD Reason for Referral dysphsgia Setting Setting Outpatient Care Patient Information Identification Type Name,Date of Patient History Pt presented for a Modified Barium Swallow Study (MBSS) at the referral of her physician , Dr. Dowd. According to the pt and records reviewed, the pt has a a PMH that includes GERD, breast cancer with chemo /radiation therapies and a remote history of an ulcer. Pt reports difficulty with swallowing both foods and liquids, describing both foods and liquids feeling stuck in the area of her sternal notch/ sternal body in general. She reports coughing and a sensation of globus when she is experiencing swallow difficulty. Subjective Observations Pt was seated in the fluorscopy chair with the directions and procedures described for her. She indicated that she understood and agreed to proceed. Patient Positioning Position View Lat-A/P Imaging Lateral View Textures Administered Trials Presented Thin Liquid via Spoon (IDDSI 0 ),Thin Liquid via Cup (IDDSI 0 ),Extremely Thick Liquid via Spoon (IDDSI 4),Regular (IDDSI 7) Barium Tablet Yes The IDDSI Framework Protocol: IDDSI.1 Oral Impairment Source: The Modified Barium Swallow Impairment Profile (MBSImP??) Lip Closure No labial escape Tongue Control During Bolus Hold Posterior escape of less than half of bolus Bolus Preparation/Mastication Timely & efficient chewing & mashing Bolus Transport/Lingual Motion Delayed initiation of tongue motion Oral Residue Trace residue lining oral structures Location Tongue Initiation of Pharyngeal Swallow Bolus head at pyriforms Additional Oral Impairment Observations OME and DKS were noted to be WNL. Pt's dentition was natural in good hygiene. ORAL PHASE: Pt demonstrated a rotary chew mastication pattern with good bolus formation and control. AP transition was observed to be timely. Swallow initiation was noted to be delayed with premature spillage of the bolus head to the valeculla and the pyriform sinuses. Pharyngeal Impairment Source: The Modified Barium Swallow Impairment Profile (MBSImP??) Soft Palate Elevation No bolus between soft palate & pharyngeal wall Laryngeal Elevation Part.sup.move.thyroid cart/ part.approx.arytenoids to epiglot.petiole Anterior Hyoid Excursion Partial anterior movement Epiglottic Movement Complete inversion Laryngeal Vestibular Closure Complete; no air/contrast in laryngeal vestibule Pharyngeal Stripping Wave Present - complete Pharyngoesophageal Segment Opening Partial distention/partial duration; partial obstruction of flow Tongue Base Retraction No contrast between tongue base & posterior pharyngeal wall Pharyngeal Residue Trace residue within/on pharyngeal structures Location Diffuse (>3 areas) Additional Pharyngeal Impairment Tongue base strength was Observations adequate. Hyolaryngeal elevation and movement were both noted to be reduced with adequate epiglottic inversion and laryngeal seal. Trace residual contrast was noted within the pharynx. No penetration or aspiration of contrast was observed. Osteophytes at C5-C6 and C6-C7 were noted. These osteophytes altered and narrowed the esophagus and may be related to the sensation of globus the pt reports experiencing. A/P View Textures Administered Trials Presented Thin Liquid via Spoon (IDDSI 0 ),Extremely Thick Liquid via Spoon (IDDSI 4),Regular (IDDSI 7) The IDDSI Framework Protocol: IDDSI.1 A/P View Observations Pharyngeal Contraction Complete Esophageal Clearance Upright Position Esophageal retention w/ regtrograde flow below pharyngoesoph segment Esophageal Function Reverse Peristalsis,Stasis, Narrowing Additional A-P Observations Esophagus was slow to empty with retention of contrast noted. Inferior to the heart, a peduncular shaped pocket was noted on the left side of the esophagus pouching out (? Zenker's diverticulum?) followed by a bulge of tissue inward(@~C7) within esophagus. This area would fill and empty during the AP view of thin liquid and cookie trials, corresponding to the observation and description of the C6-C7 area in the pharyngeal phase section. Barium tablet was observed to pause at the GE junction, requiring several swallows of water in order to pass to the stomach. Clinical Impressions Dysphagia Type Esophageal Findings PLease see the above oral, pharyngeal and esophageal phase notes for greater detail of the pt's MBSS results. Oral phase of swallowing was observed to be WNL with the pharyngeal phase to be WFL. The pt presented with esophageal dysmotility, narrowing reverse perastalsis and esophageal retention. As described above, there appeared to be a possible esophageal diverticula located in the upper esophagus near the base of the heart. Additionally immediately below that, there appeared to be an inward bulge of tissue approximately at the C7 level. Patient Appropriate for Therapy No Recommendations Diet Liquids Order Thin (IDDSI 0) Diet Order Regular (IDDSI 7) Medication Recommendation As Tolerated Comments No changes in diet recommended Aspiration Precautions Recommended Precautions Alternate Liquids/Solids, Frequent Rest Periods,Small Bites/Sips Additional Precautions slow rate of intake; alternate liquids/solids to enable esophagus to empty Treatment Plan Recommended Referrals GI Consult Additional Recommended Referrals GI referral is recommended for further assessment of the upper esophagus Therapy Strategy Recommendations Small Bites and Sips,Alternate Liquids/Solids
== END ==
PROVIDERS: Family Provider Family Medicine; PCP Family Medicine; Referring Provider Family Medicine; Visit Provider Family Medicine
DX: R13.10 Dysphagia, unspecified (principal)
CPT/HCPCS: 74230; 92611

== ENCOUNTER → 2023-02-01 07:51 | Outpatient (CLI) | payer OTHER, SELFPAY ==
--- NOTE | 2023-02-01 | DI.MRI.S_ITS ---
PROCEDURE: MR LUMBAR SPINE WO CON INDICATIONS: Radiculopathy, lumbar region TECHNIQUE: Noncontrast sagittal T1 spin echo and T2 fast echo, sagittal STIR, and T2 fast spin echo through the lumbar spine. In cases with scoliosis, additional coronal T2 fast spin echo may be performed. COMPARISON: [facility], MR, MR LUMBAR SPINE WO CON, 04/08/2021, 16:33. FINDINGS: Image quality: Excellent. Alignment and Curvature: There is normal bony alignment. Bone Marrow: Marrow is of normal overall signal. No acute vertebral body compression fractures. Spinal Cord: Conus medullaris terminates at the L1 level. Visualized cord demonstrates normal signal and size. Paraspinous Soft Tissues: No paravertebral masses. T12-L1: Diffuse disc bulge causes mild bilateral foraminal stenosis. The central canal is patent L1-L2: Diffuse disc bulge causes mild bilateral foraminal stenosis. The central canal has mild stenosis. L2-L3: Diffuse disc bulge causes mild bilateral foraminal stenosis. The central canal is patent. L3-L4: Diffuse disc bulge causes mild bilateral foraminal stenosis. The central canal is patent. L4-L5: Diffuse disc bulge and facet hypertrophy cause mild bilateral foraminal stenosis. The central canal is patent. L5-S1: Disc space narrowing and Modic type 2 endplate changes with endplate degenerative changes and disc osteophytes cause moderate bilateral foraminal stenosis. The central canal is patent. IMPRESSION: 1. Multilevel lumbar spondylosis causing foraminal stenosis and central canal stenosis as detailed above. 2. Normal appearing spinal cord. Dictated by: Philip Bender M.D. on 02/01/2023 at 14:21 Approved by: Philip Bender M.D. on 02/01/2023 at 14:30
== END ==
PROVIDERS: Family Provider Family Medicine; PCP Family Medicine; Referring Provider Physical Medicine & Rehabilitation; Visit Provider Physical Medicine & Rehabilitation
DX: M47.26 Other spondylosis with radiculopathy, lumbar region (principal); M48.061 Spinal stenosis, lumbar region without neurogenic claudication
CPT/HCPCS: 72148

== ENCOUNTER → 2023-09-29 08:55 | Outpatient (CLI) | payer OTHER, SELFPAY ==
[2023-09-29 23:33] LABS: Urine N gonorrhoeae NOT DETECTED
[2023-09-29 23:35] LABS: Urine Chlamydia NOT DETECTED
[2023-09-30 15:49] LABS: Hepatitis B Surface Antigen NEGATIVE s/c (NEGATIVE)
[2023-09-30 16:10] LABS: HIV 1 & 2 Ab/Ag 4th Gen Combo NEGATIVE (NEGATIVE); Hep C Virus Ab w/Reflex Quant NEGATIVE s/c (NEGATIVE)
[2023-10-01 02:36] LABS: HSV 2 IGG AB < 0.91 index (0.00-0.90)
[2023-10-01 08:36] LABS: RPR Screen Non Reactive (Non Reactive)
== END ==
PROVIDERS: Family Provider Family Medicine; PCP Family Medicine; Referring Provider Nurse Practitioner Family; Visit Provider Nurse Practitioner Family
DX: R30.0 Dysuria (principal); N94.89 Other specified conditions associated with female genital organs and menstrual cycle
CPT/HCPCS: 36415; 86592; 86695; 86696; 86803; 87077; 87086; 87186; 87210; 87340; 87389; 87491; 87591

== ENCOUNTER → 2023-10-08 12:34 | Outpatient (CLI) | payer OTHER, SELFPAY ==
[2023-10-08 13:50] LABS: Appearance Urine UA SL CLOUDY; Bilirubin Urine UA NEGATIVE (NEGATIVE); Color Urine UA YELLOW; Glucose Urine UA NEGATIVE (Negative); Ketones Urine UA TRACE (NEGATIVE); Leukocyte Esterase Urine UA 2+ (NEGATIVE); Nitrite Urine UA NEGATIVE (Negative); Occult Blood Urine UA NEGATIVE (Negative); Protein Urine UA 2+ (Negative); Specific Gravity Urine UA 1.015 (1.000-1.035)
[2023-10-08 14:08] LABS: Urine Volume 10mL (spun)
[2023-10-08 14:09] LABS: Bacteria Urine Few (2-10); Culture Indicated Urine Specimen Cultured; RBC Urine None Seen (0-5/HPF); Squamous Epithelial Cell Urine None Seen (0-5/HPF); WBC Urine 30-100/HPF (0-5/HPF)
== END ==
PROVIDERS: Family Provider Family Medicine; PCP Family Medicine; Referring Provider Family Medicine; Visit Provider Family Medicine
DX: R30.0 Dysuria (principal)
CPT/HCPCS: 81001; 87077; 87086; 87186

== ENCOUNTER → 2023-10-22 11:25 | Outpatient (CLI) | payer OTHER, SELFPAY | PROVIDERS: Family Provider Family Medicine; PCP Family Medicine; Referring Provider Family Medicine; Visit Provider Family Medicine | DX: N39.0 Urinary tract infection, site not specified (principal) | CPT/HCPCS: 87086 ==

== ENCOUNTER → 2023-11-05 16:19 | Outpatient (CLI) | payer OTHER, SELFPAY ==
--- NOTE | 2023-11-05 16:19 | DI.MG.S_ITS ---
BILATERAL DIGITAL SCREENING MAMMOGRAM 3D/2D WITH CAD: 11/05/2023 CLINICAL: Routine screening. Personal history of left breast cancer. Comparison is made to exams dated: 09/21/2022 mammogram, 06/16/2021 mammogram, 06/03/2020 mammogram, 11/02/2022 mammogram, and 05/24/2019 mammogram - [facility]. There are scattered areas of fibroglandular density in both breasts (category b / 25%-50% glandular tissue). Current study was also evaluated with a Computer Aided Detection (CAD) system. There is a new irregular equal density focal asymmetry with grouped heterogeneous calcifications in the right breast at 11 o'clock anterior depth. No other significant masses, calcifications, or other findings are seen in either breast. IMPRESSION: INCOMPLETE: NEEDS ADDITIONAL IMAGING EVALUATION The new irregular equal density focal asymmetry in the right breast is indeterminate. Additional views to include mediolateral and spot magnification views with possible ultrasound are recommended. This exam was interpreted at Station ID: [id number]. NOTE: For mammograms, a report in lay terms will be sent to the patient. Approximately 15% of breast malignancies will not be visualized mammographically. In the management of a palpable breast mass, a negative mammogram must not discourage biopsy of a clinically suspicious lesion. Electronically Signed By: Lorenzo Gresham M.D. aty/:11/07/2023 20:56:09 letter sent: Additional Imaging Needed ACR BI-RADS Category 0: Incomplete [id number]
== END ==
LOC: MAMMO 16:19
PROVIDERS: Family Provider Family Medicine; PCP Family Medicine; Referring Provider Family Medicine; Visit Provider Family Medicine
DX: Z12.31 Encounter for screening mammogram for malignant neoplasm of breast (principal); Z85.3 Personal history of malignant neoplasm of breast; R92.323 Mammographic fibroglandular density, bilateral breasts
CPT/HCPCS: 77063; 77067

== ENCOUNTER → 2023-11-19 10:17 | Outpatient (CLI) | payer OTHER, SELFPAY ==
--- NOTE | 2023-11-19 10:18 | DI.US.S_ITS ---
LIMITED ULTRASOUND OF RIGHT BREAST: 11/19/2023 CLINICAL: Patient returns today to evaluate a focal asymmetry in the right breast. Comparison is made to exams dated: 11/19/2023 mammogram, 11/05/2023 mammogram, 11/02/2022 mammogram, 09/21/2022 mammogram, 06/16/2021 mammogram, and 06/03/[address] mammogram - [facility]. Color flow and real-time ultrasound of the right breast 11 o'clock region were performed. Hightower scale images of the real-time examination were reviewed. There is an oval hypoechoic cyst with debris measuring 0.4 x 0.2 x 0.3 cm in the right breast at 11 o'clock in the retroareolar region. This cyst is possibly along a non-dilated duct. This probably correlates with mammography findings. Color flow imaging demonstrates that there is adjacent trace vascularity. IMPRESSION: PROBABLY BENIGN The 0.4 cm cyst with debris in the right breast might correspond to the mammographic finding, may be a focal duct dilatation, or complicated cyst and is probably benign. A follow-up right mammogram for associated fine calcifications, and an ultrasound for the cystic structure in 6 months is recommended to demonstrate stability. Findings and recommendations were conveyed to the patient at time of exam. This exam was interpreted at Station ID: [id number]. Electronically Signed By: Lillian harding/:11/19/2023 12:09:55 letter sent: Followup Recommended Ultrasound BI-RADS: 3 Probably benign
--- NOTE | 2023-11-19 10:18 | DI.MG.S_ITS ---
UNILATERAL RIGHT DIGITAL DIAGNOSTIC MAMMOGRAM 3D/2D WITH ADDITIONAL VIEWS: 11/19/2023 CLINICAL: Additional evaluation requested from prior study. Comparison is made to exams dated: 11/05/2023 mammogram, 09/21/2022 mammogram, 06/16/2021 mammogram, 06/03/2020 mammogram, and 05/24/2019 mammogram - [facility]. There are scattered areas of fibroglandular density in the right breast (category b / 25%-50% glandular tissue). The irregular equal density focal asymmetry in the right breast at 11 o'clock anterior depth is less prominent with focal compression. This is associated with gradually increasing, grouped fine calcifications, best seen with magnification views. No other significant masses or calcifications are seen in the breast. IMPRESSION: INCOMPLETE: NEEDS ADDITIONAL IMAGING EVALUATION The focal asymmetry in the right breast at 11 o'clock anterior depth remains indeterminate. An ultrasound is recommended. This was performed immediately following this exam. The fine calcifications are probably benign. 6 month follow up is recommended. This exam was interpreted at Station ID: [id number]. NOTE: For mammograms, a report in lay terms will be sent to the patient. Approximately 15% of breast malignancies will not be visualized mammographically. In the management of a palpable breast mass, a negative mammogram must not discourage biopsy of a clinically suspicious lesion. Electronically Signed By: Lillian harding/:11/19/2023 12:04:20 ACR BI-RADS Category 0: Incomplete [id number]
== END ==
PROVIDERS: Family Provider Family Medicine; PCP Family Medicine; Referring Provider Family Medicine; Visit Provider Family Medicine
DX: R92.8 Other abnormal and inconclusive findings on diagnostic imaging of breast (principal); N60.01 Solitary cyst of right breast; R92.1 Mammographic calcification found on diagnostic imaging of breast; R92.321 Mammographic fibroglandular density, right breast
CPT/HCPCS: 76642; 77065; G0279

== ENCOUNTER → 2024-04-29 07:53 | Outpatient (CLI) | payer OTHER, SELFPAY ==
[2024-04-29 08:55] LABS: Add Manual Diff / Slide Review NO; Basophils Absolute Auto 0 /uL (0-100); Basophils Percent Auto 0.6 % (0-2); Eosinophils Absolute Auto 400 /uL (0-450); Eosinophils Percent Auto 6.4 % (2-4); Hematocrit 39.9 % (36-46); Hemoglobin 13.1 g/dL (12.0-16.0); Lymphocytes Absolute Auto 1400 /uL (1100-4500); Lymphocytes Percent Auto 24.1 % (25-40); Mean Corpuscular HGB Conc 32.9 % (30-36); Mean Corpuscular Hemoglobin 26.9 PG (26-34); Mean Corpuscular Volume 81.8 fL (80-100); Monocytes Absolute Auto 500 /uL (0-900); Monocytes Percent Auto 8.5 % (3-14); Neutrophils Absolute Auto 3500 /uL (1500-7000); Neutrophils Percent Auto 60.4 % (50-75); Platelet Count 269 X10^3/uL (150-400); Red Blood Cell Count 4.88 X10^6/uL (4.0-5.2); Red Cell Distribution Width 13.6 % (11.6-14.8); White Blood Cell Count 5.8 X10^3/uL (4.5-11.0)
[2024-04-29 09:12] LABS: Hemoglobin A1C% w Est Avg Glu 5.5 % (4.0-6.0)
[2024-04-29 09:13] LABS: Alanine Aminotransferase 24 IU/L (<35); Albumin 4.4 g/dL (3.5-5.0); Albumin Globulin Ratio 1.8 (1.0-2.8); Alkaline Phosphatase 57 U/L (38-126); Aspartate Aminotransferase 33 IU/L (14-36); BUN Creatinine Ratio 16.3 (6-22); Bilirubin Total 0.4 mg/dL (0.2-1.3); Blood Urea Nitrogen 14 mg/dL (7-17); Calcium 9.4 mg/dL (8.4-10.2); Carbon Dioxide 23 mmol/L (22-32); Chloride 103 mmol/L (98-107); Cholesterol 187 mg/dL (140-199); Estimated Glomerular Filt Rate > 60 mL/min (>60); Globulin 2.5 g/dL (1.7-4.1); Glucose 101 mg/dL (80-110); HDL Cholesterol 45 mg/dL (40-60); HEMOLYSIS < 15 (0-50); LDL Cholesterol Calculated 115 mg/dL (<100); Potassium 4.6 mmol/L (3.4-5.1); Sodium 137 mmol/L (137-145); Total Protein 6.9 g/dL (6.3-8.2); Triglycerides 134 mg/dL (35-150)
[2024-04-29 09:44] LABS: Thyroid Stimulating Hormone 2.09 uIU/mL (0.47-4.68)
== END ==
PROVIDERS: Family Provider Family Medicine; PCP Family Medicine; Referring Provider Family Medicine; Visit Provider Family Medicine
DX: R53.83 Other fatigue (principal); E03.9 Hypothyroidism, unspecified; E66.9 Obesity, unspecified
CPT/HCPCS: 80053; 80061; 83036; 84443; 85025

== ENCOUNTER → 2024-06-08 13:36 | Outpatient (CLI) | payer OTHER, SELFPAY ==
--- NOTE | 2024-06-08 13:37 | DI.US.S_ITS ---
MM diagnostic mammo unilat RT, US breast RT limited: 06/08/2024 BI-RADS: 4B CLINICAL: 59-year old female for right diagnostic mammogram and right diagnostic breast ultrasound. No Tyrer-Cuzick risk score calculation due to the patient's personal history of breast cancer. Patient reports a history of left breast carcinoma diagnosed at age 41. Status-post left lumpectomy with radiation therapy and hormonal therapy. No first-degree family history of breast cancer. The patient reports testing negative for BRCA gene mutation. The patient had a prior left breast biopsy. PRIOR EXAMS 11/19/2023, 11/05/2023, 11/02/2022, 09/21/2022, 06/16/2021, 06/03/2020, 05/24/2019, 03/21/2018. MAMMOGRAPHY TECHNIQUE: 2D and 3D (tomosynthesis) digital mammographic views obtained, with additional images as needed for full coverage. Current study was also evaluated with a Computer Aided Detection (CAD) system. ULTRASOUND TECHNIQUE Real-time cannon scale and color doppler imaging of the area of clinical interest was performed with image documentation. TARGETED Right Breast Ultrasound: Real-time ultrasound exam was performed focused to area of clinical and/or imaging concern. Right targeted breast ultrasound of the area of clinical interest and the axilla was performed with image documentation. DENSITY Right: B. There are scattered areas of fibroglandular density. MAMMOGRAPHY FINDINGS Right (finding-1): Central, Anterior depth, measuring 1 cm: There are suspicious grouped amorphous calcifications with associated asymmetry. ULTRASOUND FINDINGS Right (finding-1): Outer at 9:00, Retroareolar, measuring 0.7 x 0.7 x 0.9 cm: Correlating with findings on mammogram there is an irregularly shaped, hypoechoic mass showing posterior acoustic shadowing. Doppler shows internal vascularity. Right: Upper Outer at 11:00, Retroareolar, 1 cm from nipple, measuring 0.2 cm, previously measuring 0.4 cm: No suspicious sonographic finding with typically benign findings noted. Possible duct containing debris versus clustered microcysts. Right: No abnormal lymph nodes are seen in the axilla. IMPRESSION: Right (Mass): Outer at 9:00, Retroareolar, measuring 0.7 x 0.7 x 0.9 cm * Moderate Suspicion of Malignancy. RECOMMENDATIONS Right: Outer at 9:00, Retroareolar * Ultrasound-guided core biopsy for further evaluation (Recommend correlation of the location of the biopsy microclip to ensure it is within the focal asymmetry/calcifications on the post-procedure mammogram). COMMENTS: Findings and recommendations were discussed with the patient during today's examination by Dr. Marroquin over the phone. The patient expressed agreement and understanding of the plan. OVERALL ASSESSMENT CATEGORY BI-RADS-4: Suspicious. ELECTRONICALLY SIGNED: Tara Marroquin M.D. on 06/08/2024 at 04:06:07 PM PT Interpreting Station ID: [id number]
== END ==
PROVIDERS: Family Provider Family Medicine; PCP Family Medicine; Referring Provider Family Medicine; Visit Provider Family Medicine
DX: R92.1 Mammographic calcification found on diagnostic imaging of breast (principal); R92.8 Other abnormal and inconclusive findings on diagnostic imaging of breast; N63.15 Unspecified lump in the right breast, overlapping quadrants; R92.30 Dense breasts, unspecified; Z85.3 Personal history of malignant neoplasm of breast
CPT/HCPCS: 76642; 77065; G0279

== ENCOUNTER → 2024-06-29 14:13 | Outpatient (CLI) | payer OTHER, SELFPAY ==
--- NOTE | 2024-06-29 14:15 | DI.US.S_ITS ---
US axillary only rt: 06/29/2024. BI-RADS: 2 CLINICAL: 59-year old female for right diagnostic breast ultrasound. No Tyrer-Cuzick risk score calculation due to the patient's personal history of breast cancer. Patient reports a history of left breast carcinoma diagnosed at age 41. Status-post left lumpectomy with radiation therapy and hormonal therapy. No first-degree family history of breast cancer. The patient reports testing negative for BRCA gene mutation. The patient had a prior left breast biopsy. PRIOR EXAMS: Mammogram(s): 06/08/2024. Breast Ultrasound(s): 06/08/2024. Ten Other Exams on 11/19/2023, 11/05/2023, 11/02/2022, 09/21/2022, 06/16/2021, 06/03/2020, 05/24/2019, 03/21/2018. ULTRASOUND TECHNIQUE: Exam is limited to the right axilla. ULTRASOUND FINDINGS Right: Axillary Tail, measuring 4.5 x 2.8 x 1.1 cm: Correlating with palpable lump there is a lymph node that has decreased in size. Doppler shows branching hilar vascularity. Previously the node measured 4.7 x 2.9 x 1.4 cm. It continues to demonstrate a normal cortical thickness at 2.6 mm, and a large fatty hilum. IMPRESSION: Right * No evidence of malignancy with benign findings. RECOMMENDATIONS Right: Axillary Tail * Clinical followup . Right * Biopsy for further evaluation. * Biopsy procedure already scheduled. COMMENTS: Findings and recommendations were conveyed to the patient during today's evaluation. OVERALL ASSESSMENT CATEGORY BI-RADS-2: Benign. ELECTRONICALLY SIGNED: Lillian Castillo M.D. on 06/29/2024 at 03:26:27 PM PT Interpreting Station ID: [id number]
== END ==
PROVIDERS: Family Provider Family Medicine; PCP Family Medicine; Referring Provider Family Medicine; Visit Provider Family Medicine
DX: R22.31 Localized swelling, mass and lump, right upper limb (principal)
CPT/HCPCS: 76882

== ENCOUNTER → 2024-07-03 14:09 | Outpatient (CLI) | payer OTHER, SELFPAY ==
--- NOTE | 2024-07-03 14:10 | DI.US.S_ITS ---
US bx breast perc w vac device: 07/03/2024. Rad-Path Correlation: Pending CLINICAL: 59-year old female for right procedure that resulted from diagnostic mammogram on 06/08/2024. No Tyrer-Cuzick risk score calculation due to the patient's personal history of breast cancer. Patient reports a history of left breast carcinoma diagnosed at age 41. Status-post left lumpectomy with radiation therapy and hormonal therapy. No first-degree family history of breast cancer. The patient reports testing negative for BRCA gene mutation. The patient had a prior left breast biopsy. The patient is status-post reduction mammoplasty. PRIOR EXAMS: Breast Ultrasound exam(s). Mammogram(s). Mammogram(s): 06/08/2024. Breast Ultrasound(s): 06/29/2024, 06/08/2024. Ten Other Exams on 11/19/2023, 11/05/2023, 11/02/2022, 09/21/2022, 06/16/2021, 06/03/2020, 05/24/2019, 03/21/2018. FINDINGS Initial imaging confirmed presence and location of target(s) appropriate for biopsy. CONSENT Risks including but not limited to bleeding and infection, benefits and alternatives were discussed with the patient. The patient agreed to the procedure and signed informed consent. Time out procedure was used. ROUTINE Patient positioned in the supine or supine-oblique position, prepped and draped in the usual manner using sterile technique. Right: Patient positioned in the supine or supine-oblique position, prepped and draped in the usual manner using sterile technique. TECHNIQUE Right Breast: Outer at 9:00, Anterior: Procedure: Ultrasound-guided vacuum-assisted biopsy of a focal asymmetry with Butterfly-shaped marker placement. Device: 13-gauge vacuum-assisted biopsy instrument. Bard(R) Monopty(R) 14g. Approach: Lateral. Anesthesia: Local anesthesia obtained using 4 ml 1%-lidocaine buffered with sodium bicarbonate. Secondary local anesthesia obtained using 5 ml 1%-lidocaine with epinephrine. Skin Entry: Incision with #11 blade. Passes: 4. Targeting Confirmation: Real-time Observation. Post-procedure imaging: Post-procedure imaging confirms the marker to be lateral at margin of target. Rad/Path Correlation: Pending receipt of pathology report. Conclusion: Ultrasound-guided Vacuum-assisted biopsy with post-procedure CC and LM mammographic views, Right Breast: Outer at 9:00, Anterior COMPLICATIONS: No complications were encountered while the patient was in our department. No complications, ESTIMATED BLOOD LOSS < 2ML. DISPOSITION The patient left our department in good condition with aftercare instructions and urged to contact us should any problem arise. SUMMARY Right Breast: Outer at 9:00, Anterior: Ultrasound-guided vacuum-assisted biopsy of a focal asymmetry with Butterfly-shaped marker placement. PATHOLOGY Right Breast: Outer at 9:00, Anterior: Radiologist-Pathologist Correlation: Pending receipt of pathology report. ELECTRONICALLY SIGNED: Jaxson Merrill M.D. on 07/05/2024 at 08:21:21 AM PT Interpreting Station ID: [id number]
--- NOTE | 2024-07-03 14:11 | DI.MG.S_ITS ---
MM diagnostic mammo [id number]: 07/03/2024. BI-RADS: None CLINICAL: 59-year old female for right diagnostic mammogram. No Tyrer-Cuzick risk score calculation due to the patient's personal history of breast cancer. Patient reports a history of left breast carcinoma diagnosed at age 41. Status-post left lumpectomy with radiation therapy and hormonal therapy. No first-degree family history of breast cancer. The patient reports testing negative for BRCA gene mutation. The patient had a prior left breast biopsy. The patient is status-post reduction mammoplasty. PRIOR EXAMS Mammogram(s): 06/08/2024. Breast Ultrasound(s): 06/29/2024, 06/08/2024. Ten Other Exams on 11/19/2023, 11/05/2023, 11/02/2022, 09/21/2022, 06/16/2021, 06/03/2020, 05/24/2019, 03/21/2018. MAMMOGRAPHY TECHNIQUE: 2D and 3D (tomosynthesis) digital mammographic views obtained, with additional images as needed for full coverage. Current study was also evaluated with a Computer Aided Detection (CAD) system. MAMMOGRAPHY FINDINGS Right: Upper Outer at 9:00, Anterior depth: There is a (Butterfly) biopsy marker present. Marker is located lateral to margin of target. IMPRESSION: Right * Biopsy marker present. OVERALL ASSESSMENT CATEGORY BI-RADS None: This exam requires no BI-RADS. ELECTRONICALLY SIGNED: Jaxson Merrill M.D. on 07/05/2024 at 08:25:46 AM PT Interpreting Station ID: [id number]
--- NOTE | 2024-07-03 15:32 | PATH_ITS ---
[facility] Accession Number: [id number] No. of containers..01 Tissue . 01 Material submitted: . breast - RT BREAST, RETROAREOLAR, 9:00 X4 SAMPLES . 01 Diagnosis: RIGHT BREAST RETROAREOLAR 9 O'CLOCK X 4 SAMPLES: Invasive mammary carcinoma. Please see case summary. . CASE SUMMARY . Specimen Procedure: Biopsy. Specimen laterality: Right. Histologic type: Invasive carcinoma of no special type (ductal). . Histologic grade Glandular/tubular differentiation: Score 3/3. Nuclear pleomorphism: Score 2/3. Mitotic rate: Score 1/3. Overall grade: Grade 2 (score 6/9). Ductal carcinoma in situ: Present. Architectural patterns: Cribriform and solid. Nuclear grade: Grade 2 intermediate). Necrosis: Present, focal. Microcalcifications: Present. Lymphovascular invasion: Not definitively identified. Other: Intraductal papilloma present, indeterminate for atypia due to insufficient atypical tissue volume. . Special studies: Predictive marker immunohistochemical studies are performed on block A1 with the invasive carcinoma showing the following results: . Estrogen receptor (SP1): Positive (91-100%, strong intensity). Progesterone receptor (1E2): Positive (1-10% of nuclei, intermediate intensity). Her2 (4B5): Equivocal for overexpression (2+). FISH studies requested, results will be reported as an addendum. Ki-67 (MIB1): Intermediate (approximately 15%). . Internal controls for ER and ND are positive. Cold ischemic time cannot be calculated. Total fixation time is approximately 29 hours. The scoring criteria for breast biomarkers by immunohistochemistry is based on the ASCO/CAP guidelines (Alida AC et al, J Clin Oncol: 2018 Sep 28;36(20):6324-1673 and Farhad YU et al, Arch Pathol Lab Med: 2009;134(6):907-22). Deparaffinized sections of formalin fixed tissue (along with appropriate positive controls) are incubated with the above antibody(s). Using the automated [employer] stainer, tissue is incubated with the designated antibody which is then localized by a non-biotin, dual polymer detection system. The external controls are reviewed for appropriate reactivity and found to be adequate. Results on the target cell population are indicated above. These tests have not been validated on decalcified tissue. MRV 07/06/2024 1232 Local . 01 Comment: This case is also reviewed by Dr. Cain Goldsmith, who agrees with the interpretation. . Dr. Rohini Melissa discussed results with Ivelisse Garcia, tile molder hand with Dr. Dowd's care team, on 07/06/2024 at approximately 12:38 p.m. . 01 Electronically signed: . Rohini Melissa MD, Pathologist NPI- [id number] . 01 Gross description: . Received in formalin with two identifiers and RT breast 9 o'clock retroareolar, are multiple yellow-arita soft tissue fragments aggregating to 1.9 x 0.8 x 0.2 cm. Filtered, inked orange, and submitted entirely in A1. . The specimen was removed on 07/03/2024, time not provided. Cold ischemic time cannot be calculated. Total fixation time is approximately 29 hours. ([id number]) /MRV 07/04/2024 1359 Local . 01 Microscopic: . An immunohistochemistry panel is performed to further evaluate the cells of interest. The control stains show appropriate reactivity. . RESULTS: Block A1 P63: Positive around regions of interest, consistent with ductal carcinoma in situ. Myosin: Positive around regions of interest, consistent with ductal carcinoma in situ. E-cadherin: Positive, consistent with ductal differentiation. GATA3: Positive, consistent with breast origin. CK5/6: Decreased in region of interest, consistent with ductal carcinoma in situ. . . * This test was developed and the performance characteristics were validated by [employer]. It has not been cleared or approved by the U.S. Food and Drug Administration. . 01 Pathologist provided ICD-10: Z85.3, N63.10 . 01 CPT . 194487, D42134, Z07391, [id number], 193498, [id number], [id number] Specimen Comment: A courtesy copy of this report has been sent to [phone] Specimen Comment: [id number] Performed at: [address] [id number] MD Ming Stafford MD Phone: [phone]
== END ==
PROVIDERS: Family Provider Family Medicine; PCP Family Medicine; Referring Provider Family Medicine; Visit Provider Family Medicine
DX: C50.811 Malignant neoplasm of overlapping sites of right female breast (principal); Z85.3 Personal history of malignant neoplasm of breast; Z17.0 Estrogen receptor positive status [ER+]
CPT/HCPCS: 19083; 77065

== ENCOUNTER → 2024-09-28 13:50 | Outpatient (CLI) | payer OTHER, SELFPAY ==
--- NOTE | 2024-10-11 12:50 | DIET.OUTPTC ---
Dietary Outpatient Consult Consult Date: Assessment:?59 y F referred to dietitian for obesity. Wanting to discuss protein needs, healthy protein shake options and bone health. Recently has found out has many allergies to some fruits and vegs and hazelnuts so has added more animal proteins into diet. Tracking kcals and protein in [place]idget[place]. Currently receiving radiation for carcinoma in breast. GI symptoms: denies D/C/V/N, daily BMs Diet Recall: B- scrambled eggs and french muffin or smoothie (almond milk, blueberries, cherries, greens, protein powder) or banana with almond butter L-string cheese and deli meat D-fried rice or baked potato with meat and 1 c veggies snack- plain rice cakes Vitamin D supplement and 2 600 mg calcium supplements and mushroom supplement Fluids:water Ht:?5 ft 5 in? Wt:?171 lb? BMI:?28.4? Nutrition Diagnosis:? Food and nutrition related knowledge deficit r/t unsure of protein needs aeb wanting to get enough protein daily Interventions:? Discussed and provided appropriate resources on the following: -Protein needs, protein sources, assessed diet recall for protein intake -Plant based protein shake options -Fiber needs -Nutrition for bone health including calcium, vitamin D, and supporting nutrients like magnesium and vitamin K, dietary patterns aligned with bone health including Mediterranean diet -Reintroduction of eliminated foods for trial r/t allergies Goals: -Include tolerate fruit/veg with lunch, 1 cup -70-80 g protein (1-1.2 g/kg per adjusted IBW with radiation) -Resistance training 2x/wk when feeling well Monitoring/Evaluations:? F/u as needed, pt reports appt addressed on questions/concerns for now, encouraged to reach out as needed Electronically Signed by: Melania Oneill Clinical Dietitian [address] [address]
== END ==
LOC: DIET 13:51
PROVIDERS: Family Provider Family Medicine; PCP Family Medicine; Referring Provider Family Medicine
DX: E66.9 Obesity, unspecified (principal); Z71.3 Dietary counseling and surveillance; Z68.28 Body mass index [BMI] 28.0-28.9, adult
CPT/HCPCS: 97802

== ENCOUNTER → 2024-12-02 12:10 | Outpatient (CLI) | payer OTHER, SELFPAY | PROVIDERS: Family Provider Family Medicine; PCP Family Medicine; Visit Provider Chiropractor | DX: R30.0 Dysuria (principal) | CPT/HCPCS: 87086 ==

== ENCOUNTER → 2024-12-06 14:31 | Outpatient (CLI) | payer OTHER, SELFPAY ==
[2024-12-06 16:22] LABS: Hemoglobin A1C% w Est Avg Glu 5.7 % (4.0-6.0)
== END ==
PROVIDERS: Family Provider Family Medicine; PCP Family Medicine; Referring Provider Family Medicine; Visit Provider Family Medicine
DX: R73.9 Hyperglycemia, unspecified (principal)
CPT/HCPCS: 36415; 83036

== ENCOUNTER → 2025-01-05 09:51 | Outpatient (CLI) | payer OTHER, SELFPAY | PROVIDERS: Family Provider Family Medicine; PCP Family Medicine; Visit Provider Family Medicine | DX: R39.9 Unspecified symptoms and signs involving the genitourinary system (principal) | CPT/HCPCS: 87086 ==